=== PATIENT | female | born 1990 | race Two or more races ===

== ENCOUNTER 2016-11-28 18:44 | Emergency (ER) | payer OTHER ==
[~2016-11-28] VITALS: Ht 144.8 cm; Wt 59.5 kg
[2016-11-28 19:13] VITALS: Ht 144.8 cm; Wt 59.5 kg
[2016-11-28 21:29] LABS: ADD UMIC YES; UR BILIRUBIN (Dip) NEGATIVE (NEGATIVE); UR BLOOD (Dip) TRACE (NEGATIVE); UR CLARITY CLEAR (CLEAR); UR COLOR LT. YELLOW (YELLOW); UR GLUCOSE (Dip) NEGATIVE (NEGATIVE); UR KETONES (Dip) NEGATIVE (NEGATIVE); UR LEUKOCYTE ESTERASE (Dip) NEGATIVE (NEGATIVE); UR NITRITE (Dip) NEGATIVE (NEGATIVE); UR TOTAL PROTEIN (Dip) NEGATIVE (NEGATIVE); UR UROBILINOGEN (Dip) 0.2 E.U./dL (0.1-1.0)
--- NOTE | 2016-11-28 22:02 | RADRPT ---
PROCEDURE: US OB. CLINICAL INDICATION: Vaginal spotting TECHNIQUE: Transabdominal and transvaginal views of the pelvis were obtained. COMPARISON: No prior studies are available for comparison. FINDINGS: There is a single intrauterine gestation with a CRL measuring 1.9 cm and the gestational sac measuri ng 3.4 cm, corresponding to a gestational age of 8 weeks and 4 days. The heart rate is noted at 171 bpm. There is a hypoechoic fluid collection adjacent to the gestational sac, measuring 0.8 cm, consisten t with subchorionic hemorrhage. The right ovary measures 4.3 x 2.4 x 2.7 cm. The left ovary measures 3.4 x 1.6 x 2.1 cm. No ovarian or adnexal mass lesion is seen. There is no free fluid. RPTAT: AA IMPRESSION: Single live intrauterine with an estimated gestational age of 8 weeks and 4 days, based on ultrasound measurements. Tiny area of subchorionic hemorrhage. Close follow-up is recommended. .Bret Fleming MD, MD Date Time Electronically viewed and signed by .Bret Fleming MD, on 11/28/2016 22:02 .S/
[2016-11-28 22:11] LABS: UR BACTERIA FEW; UR SQUAMOUS EPITHELIAL CELL MANY; URINE RBCS 0-2 /HPF (0)
[2016-11-28 23:16] LABS: ADD SCAN DIFF NO
[2016-11-28 23:18] LABS: BASOPHIL # 0.1 10^3/ul (0.0-0.1); BASOPHILS % 0.5 % (0.0-2.0); EOSINOPHILS # 0.5 10^3/ul (0.0-0.5); EOSINOPHILS % 4.1 % (0.0-7.0); HEMATOCRIT 37.7 % (37.0-47.0); HEMOGLOBIN 12.5 g/dl (12.0-16.0); LYMPHOCYTES # 2.6 10^3/ul (0.8-2.9); LYMPHOCYTES % 20.1 % (15.0-51.0); MEAN CORPUSCULAR HGB CONC 33.2 g/dl (32.0-37.0); MEAN CORPUSCULAR VOLUME 87.5 fl (82.0-101.0); MONOCYTE # 0.7 10^3/ul (0.3-0.9); MONOCYTES % 5.7 % (0.0-11.0); NEUTROPHIL # 8.8 10^3/ul (1.6-7.5); NEUTROPHILS % 69.1 % (39.0-77.0); PLATELET COUNT 310 10^3/UL (140-415); RED BLOOD COUNT 4.31 10^6/ul (4.20-5.40); RED CELL DISTRIBUTION WIDTH 13.2 % (11.5-14.5); WHITE BLOOD COUNT 12.8 10^3/ul (4.8-10.8)
--- NOTE | 2016-11-28 23:26 | ERD ---
ER Documentation Chief Complaint Date/Time DATE: 11/28/16 TIME: 23:18 Chief Complaint VAG BLEED IN AM, 8 WEEKS PREG. HPI This is a 25-year-old female presents to the ER with vaginal spotting that started this morning. Patient was also having mild pelvic pain. Pelvic pain is described as crampy and is non-radiating in nature. Patient denies any urinary frequency or dysuria. She is currently 8 weeks . A0. Patient denies any fever or chills. ROS 12 point review of systems was done, all negative except per HPI. PMhx/Soc Medical and Surgical Hx: pt denies Medical Hx, pt denies Surgical Hx Hx Alcohol Use: No Hx Substance Use: No Hx Tobacco Use: No Smoking Status: Never smoker Physical Exam Vitals Vital Signs Date Time Temp Pulse Resp B/P Pulse Ox O2 Delivery O2 Flow Rate FiO2 11/28/16 19:13 97.4 86 18 111/69 99 Physical Exam GENERAL: The patient is well developed and appropriate for usual state of health , in no apparent distress. HEENT: Atraumatic. CHEST: Clear to auscultation bilaterally. There are no rales, wheezes or rhonchi. HEART: Regular rate and rhythm. No murmurs, clicks, rubs or gallops. ABDOMEN: Soft, nontender and nondistended. Good bowel sounds. No rebound or guarding. No gross peritonitis. No gross organomegaly or masses. No Zamudio sign or McBurney point tenderness. BACK: No midline or flank tenderness. NEURO: Alert and oriented. SKIN: The skin is warm and dry. Result Diagram: 11/28/16 7336 Results 24 hrs Laboratory Tests Test 11/28/16 20:58 11/28/16 23:06 Urine Color LT. YELLOW Urine Clarity CLEAR Urine pH 6.0 Urine Specific [place] 1.015 Urine Ketones NEGATIVE Urine Nitrite NEGATIVE Urine Bilirubin NEGATIVE Urine Urobilinogen 0.2 E.U./dL Urine Leukocyte Esterase NEGATIVE Urine Microscopic RBC 0-2/HPF Urine Microscopic WBC 0-2/HPF Urine Squamous Epithelial Cells MANY Urine Bacteria FEW Urine Hemoglobin TRACE Urine Glucose NEGATIVE% Urine Total Protein NEGATIVE White Blood Count 12.810^3/ul Red Blood Count 4.3110^6/ul Hemoglobin 12.5g/dl Hematocrit 37.7% Mean Corpuscular Volume 87.5fl Mean Corpuscular Hemoglobin 29.0pg Mean Corpuscular Hemoglobin Concent 33.2g/dl Red Cell Distribution Width 13.2% Platelet Count 68434^3/UL Mean Platelet Volume 10.0fl Neutrophils % 69.1% Lymphocytes % 20.1% Monocytes % 5.7% Eosinophils % 4.1% Basophils % 0.5% Nucleated Red Blood Cells % 0.0/100WBC Neutrophils # 8.810^3/ul Lymphocytes # 2.610^3/ul Monocytes # 0.710^3/ul Eosinophils # 0.510^3/ul Basophils # 0.110^3/ul Nucleated Red Blood Cells # 0.010^3/ul Procedures/MDM Differential diagnosis: Threatened , missed , incomplete , ectopic , molar , UTI, pyelonephritis. At this time patient's ultrasound is normal. Suspicion for ectopic is low. Patient does have a small subchorionic hemorrhage, which may be the cause of her bleeding. There is no evidence of urinary tract infection. Patient's vital signs are stable she is afebrile and well-appearing. 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 My medical decision making was shared with the patient she understands and agrees with plan. Departure Diagnosis: Primary Impression: Threatened Condition: Stable THERON OMER Nov 28, 2016 23:26
[2016-11-29 00:19] VITALS: BP 107/59; PULSE 71; RESP 16; TEMP 97.9
== END 2016-11-29 00:26 | disposition home or self-care (01) ==
LOC: FTE 18:44
DX: O20.0 Threatened abortion (principal); Z3A.08 8 weeks gestation of pregnancy
CPT/HCPCS: 76801; 76817; 81001; 81003; 84702; 85025; 86900; 86901

== ENCOUNTER 2017-05-15 13:15 | Outpatient (CLI) | payer OTHER ==
[~2017-05-15] VITALS: Ht 144.8 cm; Wt 64.9 kg
[2017-05-15 13:31] VITALS: Ht 144.8 cm; Wt 64.9 kg
[2017-05-15 13:32] VITALS: BP 102/58; PULSE 108; RESP 20
--- NOTE | 2017-05-15 14:12 | RADRPT ---
PROCEDURE: OB ultrasound for biophysical profile CLINICAL INDICATION: Gestational diabetes TECHNIQUE: Multiple sonographic images of the pelvis were obtained. Transabdominal views of the g ravid uterus are available for review. The images were reviewed on a PACS workstation. COMPARISON: None FINDINGS: breathing movement = 2/2 tone = 2/2 motion = 2/2 BELEM = 2/2 BELEM = 8.5 cm Single live intrauterine with cardiac activity of 141 bpm. position is cephal ic. The placenta is anterior. IMPRESSION: 1. Single live intrauterine gestation. 2. Biophysical profile = 8/8. 3. BELEM = 8.5 cm. RPTAT: HH .Kristyn Bennett MD, MD Date Time Electronically viewed and signed by .Kristyn Bennett MD, on 05/15/2017 14:12 .G/
--- NOTE | 2017-05-15 14:14 | RADRPT ---
PROCEDURE: US OB. CLINICAL INDICATION: Gestational diabetes TECHNIQUE: Multiple sonographic images of the pelvis were obtained. Transabdominal imaging only w as performed. The images were reviewed on a PACS workstation. COMPARISON: Early OB ultrasound dated 11/28/2016 FINDINGS: There is a single live intrauterine gestation. Cardiac activity is present with 141 beats per minut e. position is cephalic. Measurements were made in order to determine age. The results are as follows: BPD = 7.54 cm HC = 28.09 cm AC = 29.09 cm FL = 6.78 cm. Estimated gestational age of approximately 32 weeks 2 days. The estimated date of delivery is 07/08/2017. The EFW = 2114 g, 78.2 %ile. The placenta is anterior. There is no evidence for an abruption or placenta previa. There are no adnexal masses. IMPRESSION: 1. Single live intrauterine gestation of approximately 32 weeks 2 days, by ultrasound criteria. Th ere has been normal interval growth when compared to the prior examination. 2. The estimated date of delivery is 07/08/2017. 3. The estimated weight is 2114 g, 78.2 %ile. RPTAT: HH .Kristyn Bennett MD, MD Date Time Electronically viewed and signed by .Kristyn Bennett MD, on 05/15/2017 14:14 .G/
--- NOTE | 2017-05-15 14:40 | PN ---
Triage Information Date/Time Reason for visit: Weeks of Gestation 31w 6d /Para Diabetes: gestational Diabetes management: oral agent Objective Heart Rate Comments reactive Contractions: None Results/Medications Imaging Results BPP 03/14, BELEM 8.5cm Disposition: Discharge SHERIN MALCOLM May 15, 2017 14:40
[2017-05-15] MEDS ORDERED: GLYB5TAB3 PO ×2 (15:09)
[2017-05-15] MEDS ORDERED: PREN1TAB79 PO (15:09)
== END 2017-05-15 15:30 | disposition home or self-care (01) ==
LOC: L-D 13:15 → OBT 13:15
PROVIDERS: ATTEND Obstetrics & Gynecology
DX: O24.415 Gestational diabetes mellitus in pregnancy, controlled by oral hypoglycemic drugs (principal); Z3A.31 31 weeks gestation of pregnancy
CPT/HCPCS: 76815; 76818; G0463

== ENCOUNTER 2017-05-18 16:08 | Outpatient (CLI) | payer OTHER ==
[~2017-05-18] VITALS: Ht 144.8 cm; Wt 65.6 kg
[~2017-05-18 16:08] MED LIST: GLYB5TAB3 PO; PREN1TAB79 PO
[2017-05-18 16:37] VITALS: Ht 144.8 cm; Wt 65.6 kg
[2017-05-18 19:50] LABS: ADD UMIC YES; UR ASCORBIC ACID NEGATIVE (NEGATIVE); UR BACTERIA FEW /HPF (NONE SEEN); UR BILIRUBIN (Dip) NEGATIVE (NEGATIVE); UR BLOOD (Dip) NEGATIVE (NEGATIVE); UR CLARITY SLIGHTLY CLOUDY (CLEAR); UR COLOR YELLOW (YELLOW); UR GLUCOSE (Dip) 1+ mg/dL (NEGATIVE); UR KETONES (Dip) NEGATIVE (NEGATIVE); UR LEUKOCYTE ESTERASE (Dip) 2+ Leu/ul (NEGATIVE); UR NITRITE (Dip) NEGATIVE (NEGATIVE); UR RBC 2 /HPF (0-5); UR SQUAMOUS EPITHELIAL CELL FEW /HPF (FEW); UR TOTAL PROTEIN (Dip) NEGATIVE (NEGATIVE); UR UROBILINOGEN (Dip) NEGATIVE (NEGATIVE)
[2017-05-18] MEDS: TERBUTALINE 1 MG/ML INJ SC PRN ×2 (20:26→21:42)
[2017-05-18] MEDS ORDERED: FERR256T PO (20:34)
--- NOTE | 2017-05-18 20:45 | RADRPT ---
PROCEDURE: US biophysical profile. CLINICAL INDICATION: Decreased motion. The patient in labor. TECHNIQUE: Multiple sonographic images of the uterus were obtained. Transvaginal sonograp hy of the cervix was also performed. The images were reviewed on a PACS workstation. COMPARISON: No prior studies are available for comparison. FINDINGS: There is a single live intrauterine gestation. heart rate is 144 beats per minute. The position is cephalic. The placenta is anterior grade 1 with no abruption or previa. The BELEM is 17.2 cm. (Normal = 5-20 cm.) Cervical length is 3.4 cm. The cervix is closed. Breathing Movement: 2 Gross Body Movement: 2 Tone: 2 Qualitative Amniotic Fluid Volume: 2 TOTAL: 8 IMPRESSION: 1. The biophysical score is 8/8. 2. Close cervix with a length of 3.4 cm. RPTAT: QQ .Chad Reynolds MD, MD Date Time Electronically viewed and signed by .Chad Reynolds MD, on 05/18/2017 20:45 .R/
--- NOTE | 2017-05-18 22:25 | TRIAGE ---
OB Triage Datetime Report Generated by CPN: 05/18/2017 22:25 Datetime: 05/18/2017 22:23 Stage of : OB Triage Datetime: 05/18/2017 22:00 Labor Evaluation Frequency: 3-6 Monitor Mode: External Duration (sec)2399: 50-70 Pattern: Normal: <= 5 Contractions in 10 Minutes Contraction Comments: OCCASIONAL IRREGULAR PATTERN. PT ISNT FEELING CRAMPING OR UC'S Heart Rate FHR Baseline Rate: 145 Monitor Mode: External US FHR Baseline Changes: No Baseline Change Variability: Moderate 6-25 bpm Datetime: 05/18/2017 21:41 Contraction Comments: pt. denies feeling uc's or cramping Datetime: 05/18/2017 21:00 Labor Evaluation Frequency: 0 Duration (sec)2399: 0 Pattern: Normal: <= 5 Contractions in 10 Minutes Heart Rate FHR Baseline Rate: 145 Monitor Mode: External US FHR Baseline Changes: No Baseline Change Variability: Moderate 6-25 bpm Accelerations: 15X15 Decelerations: None Datetime: 05/18/2017 20:56 Pain Assessment Pain Scale: 2 Pain Presence: Intermittent Pain Type: Cramping Pain Location: Back Pain Assessment Comments: pt. states pain has decreased and she is feeling less cramping Datetime: 05/18/2017 20:27 Monitor Mode: Palpation Resting Tone [place]: Relaxed Datetime: 05/18/2017 20:00 Labor Evaluation Frequency: 4-5 Monitor Mode: External Duration (sec)2399: 50-70 Pattern: Normal: <= 5 Contractions in 10 Minutes Heart Rate FHR Baseline Rate: 145 Monitor Mode: External US FHR Baseline Changes: No Baseline Change Variability: Minimal - Undetectable to <=5 bpm Datetime: 05/18/2017 19:30 Stage of : OB Triage Assessment Type: Triage Maternal Assessment Level of Consciousness: Fully Conscious Headache: Denies Blurred Vision: No Respiratory Effort: Unlabored; Regular Rhythm; Equal Expansion Nausea/Vomiting: Denies RUQ Epigastric Pain: Denies Facial Edema: None Fall Risk Assessment History of Falling: (0) No Secondary Diagnosis: (0) No Ambulatory Aid: (0) Bedrest/Nurse Assist IV Therapy: (0) No Gait: (0) Normal/Bedrest/Immobile Mental Status: (0) Oriented to Own Ability Fall Score: 0 Fall Risk Score Definition: No Risk: No action required Datetime: 05/18/2017 18:23 Labor Evaluation Frequency: 4-6 Monitor Mode: External Duration (sec)2399: 50-80 Quality: Mild Pattern: Normal: <= 5 Contractions in 10 Minutes Resting Tone [place]: Relaxed Heart Rate FHR Baseline Rate: 145 Monitor Mode: External US FHR Baseline Changes: No Baseline Change Variability: Moderate 6-25 bpm Accelerations: 15X15 Decelerations: None Category: Category I Pain Presence: None/Denies Datetime: 05/18/2017 17:11 Labor Evaluation Frequency: 4-6 Monitor Mode: External Duration (sec)2399: 50-80 Quality: Mild Pattern: Normal: <= 5 Contractions in 10 Minutes Resting Tone [place]: Relaxed Heart Rate FHR Baseline Rate: 150 Monitor Mode: External US FHR Baseline Changes: No Baseline Change Variability: Moderate 6-25 bpm Accelerations: 15X15 Decelerations: None Category: Category I Pain Presence: None/Denies Datetime: 05/18/2017 15:57 Time of Arrival: 05/18/2017 15:57 EGA: 32.2 Arrived By: Ambulatory Arrived From: Office Chief Complaint: UC'S, Movement: Present Contractions: Irregular Rupture of Membranes: Denies Vaginal Bleeding: None Vaginal Discharge: Denies Recent Sexual Intercouse: Denies Abdominal Trauma: Not Applicable Patient Complaints: Contractions; Cramping Time Provider Notified: 05/18/2017 20:00 Provider Notified: BENITO Initial Plan: PO HYDRATION AND CONT EFM Datetime: 05/18/2017 14:55 Stage of : OB Triage Assessment Type: Triage Maternal Assessment Level of Consciousness: Fully Conscious DTR's/Clonus: DTRs 2+; No Clonus Headache: Denies Blurred Vision: No Respiratory Effort: Unlabored; Regular Rhythm; Equal Expansion Breath Sounds, Left: Clear and Equal Breath Sounds, Right: Clear and Equal Nausea/Vomiting: Denies RUQ Epigastric Pain: Denies Facial Edema: None Temperature Route: Axillary Fall Risk Assessment History of Falling: (0) No Secondary Diagnosis: (0) No Ambulatory Aid: (0) Bedrest/Nurse Assist IV Therapy: (0) No Gait: (0) Normal/Bedrest/Immobile Mental Status: (0) Oriented to Own Ability Fall Score: 0 Fall Risk Score Definition: No Risk: No action required Datetime: 05/15/2017 17:06 Time of Arrival: 05/15/2017 13:08 EGA: 31.6 Arrived By: Ambulatory Arrived From: Home Chief Complaint: NST AND BPP FOR A2DM ON [place] Movement: Present Contractions: Denies/Absent Rupture of Membranes: Denies Vaginal Bleeding: None Vaginal Discharge: Denies Recent Sexual Intercouse: Denies Abdominal Trauma: Not Applicable Patient Complaints: None Time Provider Notified: 05/15/2017 14:00 Provider Notified: DR. MALCOLM Initial Plan: NST/BPP Datetime: 05/15/2017 14:41 Labor Evaluation Frequency: OCCASIONAL Monitor Mode: External Duration (sec)2399: 50-90 Quality: Moderate Pattern: Normal: <= 5 Contractions in 10 Minutes Resting Tone [place]: Relaxed Heart Rate FHR Baseline Rate: 140 Monitor Mode: External US Variability: Moderate 6-25 bpm Accelerations: 15X15 Decelerations: None Category: Category I Datetime: 05/15/2017 13:49 Labor Evaluation Frequency: IRREG Monitor Mode: External Duration (sec)2399: 40-60 Quality: Mild Pattern: Normal: <= 5 Contractions in 10 Minutes Resting Tone [place]: Relaxed Heart Rate FHR Baseline Rate: 135 Monitor Mode: External US Variability: Moderate 6-25 bpm Accelerations: 15X15 Decelerations: None Category: Category I Datetime: 05/15/2017 13:45 Assessment Type: Triage Maternal Assessment Level of Consciousness: Fully Conscious DTR's/Clonus: DTRs 2+; No Clonus Headache: Denies Blurred Vision: No Respiratory Effort: Unlabored; Regular Rhythm; Equal Expansion Breath Sounds, Left: Clear and Equal Breath Sounds, Right: Clear and Equal Nausea/Vomiting: Denies RUQ Epigastric Pain: Denies Lower Extremities Edema: None Degree: None Upper Extremities Edema: None Degree: None Facial Edema: None Fall Risk Assessment History of Falling: (0) No Secondary Diagnosis: (0) No Ambulatory Aid: (0) Bedrest/Nurse Assist IV Therapy: (0) No Gait: (0) Normal/Bedrest/Immobile Mental Status: (0) Oriented to Own Ability Fall Score: 0 Fall Risk Score Definition: No Risk: No action required Datetime: 05/15/2017 13:30 Stage of : OB Triage Assessment Type: Triage Maternal Assessment Level of Consciousness: Fully Conscious DTR's/Clonus: DTRs 2+; No Clonus Headache: Denies Blurred Vision: No Respiratory Effort: Unlabored; Regular Rhythm; Equal Expansion Breath Sounds, Left: Clear and Equal Breath Sounds, Right: Clear and Equal Nausea/Vomiting: Denies RUQ Epigastric Pain: Denies Lower Extremities Edema: None Degree: None Upper Extremities Edema: None Degree: None Facial Edema: None Temperature Route: Axillary Fall Risk Assessment History of Falling: (0) No Secondary Diagnosis: (0) No Ambulatory Aid: (0) Bedrest/Nurse Assist IV Therapy: (0) No Gait: (0) Normal/Bedrest/Immobile Mental Status: (0) Oriented to Own Ability Fall Score: 0 Fall Risk Score Definition: No Risk: No action required Pain Assessment Pain Scale: 0 Pain Presence: None/Denies Pain Type: N/A
--- NOTE | 2017-05-18 23:34 | PN ---
Triage Information Date/Time 05/18/17/ 9449 Reason for visit: Uterine contractions Weeks of Gestation 32w2d /Para primigravida Diabetes: gestational Additional information on glyburide 5mg Objective Heart Rate: 140's Contractions: < 5 Minutes Apart Results/Medications Results 24 hrs Laboratory Tests Test 05/18/17 19:00 Urine Color YELLOW Urine Clarity SLIGHTLY CLOUDY A Urine pH 7.0 Urine Specific [place] 1.010 Urine Ketones NEGATIVE Urine Nitrite NEGATIVE Urine Bilirubin NEGATIVE Urine Urobilinogen NEGATIVE Urine Leukocyte Esterase 2+ H Urine Microscopic RBC 2 Urine Microscopic WBC 4 Urine Squamous Epithelial Cells FEW Urine Bacteria FEW A Urine Hemoglobin NEGATIVE Urine Glucose 1+ H Urine Total Protein NEGATIVE Medications p.o hydration x1 terbutaline Imaging Results BPP 03/14 BELEM 17.2 CVL 3.4 Disposition: Discharge Assessment/Plan IUP 32W2D R/O PTL resolved with po hydration and x1 terbutaline Plan discharge home with increase fluid intake RTH prn JOAN OLIVER MD May 18, 2017 23:34
== END 2017-05-18 22:30 | disposition home or self-care (01) ==
LOC: OBT 16:08 → L-D 16:10 → OBT 22:30
PROVIDERS: ATTEND Obstetrics & Gynecology
DX: O62.9 Abnormality of forces of labor, unspecified (principal); Z3A.32 32 weeks gestation of pregnancy
CPT/HCPCS: 76817; 76818; 81001; 96372; G0463; J3105

== ENCOUNTER 2017-05-24 00:05 | Inpatient (IN) | payer OTHER ==
[~2017-05-24 00:05] MED LIST changes: +FERR256T PO
[2017-05-24] MEDS ORDERED: LACTATED RINGER'S 1,000 ML IV SCH (01:06)
[2017-05-24] MEDS ORDERED: DEXTROSE 50% 50 ML SYRINGE IV PRN ×2 (01:15)
[2017-05-24] MEDS ORDERED: GLUCAGON 1 MG INJ IM PRN (01:15)
[2017-05-24] MEDS ORDERED: GLUCOSE GEL 15 GRAM TUBE BUCCAL PRN (01:15)
[2017-05-24] MEDS ORDERED: GLUCOSE GEL 15 GRAM TUBE PO PRN ×2 (01:15)
[2017-05-24] MEDS ORDERED: AL HYDROX/MG HYDROX/SIMETH 30 ML CUP PO PRN (01:30)
[2017-05-24] MEDS ORDERED: ACETAMINOPHEN 325 MG TAB PO PRN (01:30)
[2017-05-24] MEDS ORDERED: DIPHENHYDRAMINE 25 MG CAP PO PRN (01:30)
[2017-05-24] MEDS: ACCU-CHEK XX SCH ×4 (08:00→19:47)
[2017-05-24] MEDS ORDERED: glyBURIDE 5 MG TAB PO SCH (08:00)
--- NOTE | 2017-05-24 08:50 | RADRPT ---
PROCEDURE: OB ultrasound for biophysical profile CLINICAL INDICATION: Uncontrolled diabetes. Biophysical profile. . TECHNIQUE: Multiple sonographic images of the pelvis were obtained. Transabdominal view of the gr avid uterus are available for review. The images were reviewed on a PACS workstation. COMPARISON: None FINDINGS: breathing movement = 2/2 tone = 2/2 motion = 2/2 BELEM = 2/2 Single intrauterine gestation is identified in cephalic position. heart rate is 141 bpm. Plac enta is anterior without evidence for abruption or previa. BELEM measures 11.9 cm, within normal limi ts. IMPRESSION: 1. Single live intrauterine gestation. 2. Biophysical profile = 8/8. 3. BELEM = 11.9 cm. RPTAT: AAOO .Bentley Smith MD, Date Time Electronically viewed and signed by .Bentley Smith MD, on 05/24/2017 08:50 .R/
[2017-05-24] MEDS: FERROUS SULFATE (EC) 325 MG TAB PO SCH ×2 (08:53→21:16)
[2017-05-24] MEDS: PRENATAL VITAMIN PO SCH (08:54)
[2017-05-24] MEDS: DOCUSATE SODIUM 100 MG CAP PO SCH (08:54)
[2017-05-24 13:25] LABS: ALBUMIN 3.3 g/dl (3.3-4.9); BILIRUBIN,INDIRECT 0.1 mg/dl (0-1.1); BILIRUBIN,TOTAL 0.1 mg/dl (0.2-1.3); TOTAL PROTEIN 7.1 g/dl (6.1-8.1)
--- NOTE | 2017-05-24 14:02 | PREOPHP ---
DATE OF ADMISSION: 05/24/2017 HISTORY OF PRESENT ILLNESS: This is a 25-year-old female, 1, para 0 with an EDC of 07/06/20 17 by ultrasound 07/11/2016 by last menstrual period on 10/04/2016. This patient had been followed by me since early . She had no complications and she developed gestational diabetes in the third trimester. The patient was not controlled with her blood sugars until now. She was placed o n glyburide 5 mg in the morning and 2.5 mg in the evening and she was followed closely. Diet was ad vised and she is ____ me today. Yesterday, the blood sugar levels were extremely abnormal. For thi s reason, the patient was admitted to the hospital with blood levels that were up to 200 at dinnerti me for control and education of her diet even though I had spent 12 hours of trying to explain this to her from the beginning. The patient needs a little more education and also maybe adjustment on h er p.o. medication or maybe to be switched to insulin. PAST MEDICAL HISTORY: Unremarkable. ALLERGIES: SHE IS NOT ALLERGIC TO ANY MEDICATION. SOCIAL HISTORY: She does not drink or smoke and no history of drugs. The patient is from [facility]. FAMILY HISTORY: Her mother is diabetic and father with heart disease. PHYSICAL EXAMINATION: VITAL SIGNS: Patient is 4 feet 9 inches. She started with a weight of 130 and right now she is 147 and she is with normal blood pressure is 90/60. HEAD AND NECK: Normal. HEART: Normal sinus rhythm. LUNGS: Clear. ABDOMEN: Soft. Uterus at 33-6/7 and the heart tones are normal with normocephalic presentat ion. The patient looks very small in height for the size of this . EXTREMITIES: Normal. PELVIC: The cervix is closed, long and posterior. No signs of labor even though she is stating lorrie t she is having contractions. DIAGNOSES: The patient has a 33 and 6/7 weeks' with gestational diabetes A2. She is bein g admitted for control of her blood sugar and consultation to perinatology. Dictated By: MELITA SABILLON/SAMMY Conf#: [id number] DID#: [id number]
[2017-05-24] MEDS ORDERED: glyBURIDE 2.5 MG TAB PO SCH (21:00)
[2017-05-25] MEDS ORDERED: glyBURIDE 5 MG TAB PO SCH (08:00)
[2017-05-25] MEDS: ACCU-CHEK XX SCH ×4 (08:30→19:47)
[2017-05-25] MEDS: FERROUS SULFATE (EC) 325 MG TAB PO SCH ×2 (09:32→20:47)
[2017-05-25] MEDS: PRENATAL VITAMIN PO SCH (09:32)
[2017-05-25] MEDS: DOCUSATE SODIUM 100 MG CAP PO SCH (09:32)
--- NOTE | 2017-05-25 11:56 | PN ---
Date/Time of Note Date/Time of Note DATE: 05/25/17 TIME: 11:52 OB Subjective Subjective Subjective Patient has been stable on no medication by mouth. Dr Us has been consulted and she agreed on sending this patient home on no meds. She has been explained by the field interviewer how to eat at home and she will be coming back for NST BPP and she will bring her blood sugar levels for Dr. Alves to evaluate. I will keep her until tomorrow to review her 2 hours sugar after dinner OB Objective HEENT: WNL Heart: Rhythm Normal Lungs: Clear, Equal Abdomen: WNL Extremities: Normal Reflexes: Normal MELITA STEARNS MD May 25, 2017 11:56
[2017-05-25] MEDS: LACTATED RINGER'S 1,000 ML IV SCH ×4 (12:55→20:46)
[2017-05-25] MEDS ORDERED: MAGNESIUM SULFATE 4 GM/100 ML 100 ML IV ONE (15:30)
[2017-05-25] MEDS ORDERED: BETAMET NA PHOS/AC(6 MG/ML) 5ML INJ IM SCH (15:30)
[2017-05-25] MEDS: MAGNESIUM SULFATE 20 GM/500 ML 500 ML IV SCH (16:12)
[2017-05-25] MEDS: AMPICILLIN 2 GM/NS (PMX) 100 ML IV SCH (17:44)
--- NOTE | 2017-05-25 22:19 | RADRPT ---
PROCEDURE: CERVICAL LENGTH ULTRASOUND CLINICAL INDICATION: labor at 33 weeks gestational age. TECHNIQUE: Trans-vaginal imaging of the cervical canal was performed utilizing yan-scale imaging. Sagittal and transverse images were obtained. Trans-abdominal images were also obtained. The xiomara ges were reviewed on a PACS workstation. COMPARISON: None. FINDINGS: There is a single live intrauterine . heart rate is 134 beats per minute. Position is cephalic and placenta is anterior grade II. There is no placenta previa. The cervix is closed with a length of 3.3 cm. IMPRESSION: 1. Cervical length is 3.3 cm. RPTAT: QQ .Chad Reynolds MD, MD Date Time Electronically viewed and signed by .Chad Reynolds MD, on 05/25/2017 22:19 .R/
[2017-05-26] MEDS: AMPICILLIN 2 GM/NS (PMX) 100 ML IV SCH ×3 (00:05→17:14)
[2017-05-26] MEDS: MAGNESIUM SULFATE 20 GM/500 ML 500 ML IV SCH ×2 (01:08→11:22)
[2017-05-26] MEDS: LACTATED RINGER'S 1,000 ML IV SCH (04:42)
[2017-05-26] MEDS: ACCU-CHEK XX SCH ×3 (08:36→16:30)
[2017-05-26] MEDS: DOCUSATE SODIUM 100 MG CAP PO SCH (09:04)
[2017-05-26] MEDS: PRENATAL VITAMIN PO SCH (09:04)
[2017-05-26] MEDS: FERROUS SULFATE (EC) 325 MG TAB PO SCH (09:04)
--- NOTE | 2017-05-26 13:14 | PD.PPDC ---
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
--- NOTE | 2017-05-26 13:58 | PERINOTE ---
Date/Time of Note Date/Time of Note DATE: 05/26/17 TIME: 13:51 Assessment/Recommendations Other Assessments IUP 33W3D Gestational diabetes, now well controlled on no medication UCs with normal cervical length; lower risk for delivery Recommendations: I discussed with the patient appropriate dietary choices and she appears to understand I would D/C the magnesium at this time. If the patient does not begin to contract again, I would D/C home without the second dose of betamethasone. I would have thsi patient seen in the perinatology clinic in 5-10 days to review her diabetes care and for an ultrasound for growth (if not done in the past month). OB Subjective Free Text/Dictaton Patient admitted with uncontrolled diabetes. While in the hospital she developed contractions and was treated with magnesium sulfate and betamethasone. Transvaginal cervical length was 3.3cm. HD# 3 IUP @ 33W3D Complaints/Overnight events Patient's blood glucose has been normal on no medication, except for mild elevations due to use of steroids. No contractions at present. Current Medications Current Medications Prenat Multivit/ [place]/Iron/Folic Ac () 1 tab DAILY PO Last administered on 05/26/17 09:04; Admin Dose 1 TAB; Start 05/24/17 at 09:00 Ferrous Sulfate (Ferrous Sulfate (Ec)) 325 mg BID PO Last administered on 05/26 09:04; Admin Dose 325 MG; Start 05/24/17 at 09:00 Docusate Sodium (Colace) 100 mg DAILY PO Last administered on 05/26/17 09:04 ; Admin Dose 100 MG; Start 05/24/17 at 09:00 Acetaminophen (Tylenol Tab) 650 mg Q4H PRN PO PAIN AND OR ELEVATED TEMP Last administered on 05/26/17 11:23; Admin Dose 650 MG; Start 05/24/17 at 01:30 Al Hydrox/Mg Hydrox/Simethicone (Mag-Al Plus) 30 ml Q6H PRN PO GASTROINTESTINAL UPSET; Start 05/24/17 at 01:30 Diagnostic Test (Pha) (Accu-Chek) 1 ea FBSPP XX Last administered on 11:00; Admin Dose 1 EA; Start 05/24/17 at 07:30 Miscellaneous Information 1 ea NOTE XX ; Start 05/24/17 at 01:15 Glucose (Glutose) 15 gm Q15M PRN PO DECREASED GLUCOSE; Start 05/24/17 at 01:15 Glucose (Glutose) 22.5 gm Q15M PRN PO DECREASED GLUCOSE; Start 05/24/17 at 01: 15 Dextrose (D50w Syringe) 25 ml Q15M PRN IV DECREASED GLUCOSE; Start 05/24/17 at 01:15 Dextrose (D50w Syringe) 50 ml Q15M PRN IV DECREASED GLUCOSE; Start 05/24/17 at 01:15 Glucagon (Glucagen) 1 mg Q15M PRN IM DECREASED GLUCOSE; Start 05/24/17 at 01: 15 Glucose 15 gm 15 gm Q15M PRN BUCCAL DECREASED GLUCOSE; Start 05/24/17 at 01:15 Lactated Ringer's 1,000 ml @ 75 mls/hr [id number] IV Last administered on 15:46; Admin Dose 75 MLS/HR; Start 05/25/17 at 15:22 Magnesium Sulfate (Magnesium Sulfate 20 Gm/500 ml) 500 ml @ 50 mls/hr Q10H IV Last administered on 05/26/17 11:22; Admin Dose 50 MLS/HR; Start 05/25/17 at 15:30 Betamethasone Acet/Betameth SodPhos 12 mg 12 mg Q24H IM Last administered on 15:53; Admin Dose 12 MG; Start 05/25/17 at 15:30; Stop 05/26/17 at 15 :31 Ampicillin (Ampicillin 2 Gm/ NS (Pmx)) 100 ml @ 100 mls/hr Q6 IV Last administered on 05/26/17 05:51; Admin Dose 100 MLS/HR; Start 05/25/17 at 18: 00 Past Medical History Medical History: no pertinent history Surgical History: no surgical history 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 Para: 0 : 1 LMP (Females 10-50): Family History Significant Family History: diabetes OB Admission Exam Physical Exam Abdomen: WNL Last 72 hourBlood Glucose Bedside Glucose - 72 Hours Test 05/24/17 00:55 05/24/17 07:50 05/24/17 11:02 05/24/17 12:30 Bedside Glucose 127mg/dL (70-220) 85mg/dL (70-220) 90mg/dL (70-220) 55mg/dL (70-220) L Test 05/24/17 12:50 05/24/17 13:06 05/24/17 14:04 05/24/17 14:59 Bedside Glucose 65mg/dL (70-220) L 67mg/dL (70-220) L 109mg/dL (70-220) 107mg/dL (70-220) Test 05/24/17 19:42 05/25/17 07:57 05/25/17 11:23 05/25/17 15:05 Bedside Glucose 93mg/dL (70-220) 82mg/dL (70-220) 108mg/dL (70-220) 105mg/dL (70-220) Test 05/25/17 19:47 05/26/17 08:34 05/26/17 11:05 Bedside Glucose 101mg/dL (70-220) 111mg/dL (70-220) 121mg/dL (70-220) Last 72 hours Lab Results Liver Function Test 05/24/17 12:11 Alanine Aminotransferase (ALT/SGPT) 26 Albumin 3.3 Alkaline Phosphatase 174 H Aspartate Amino Transf (AST/SGOT) 19 Direct Bilirubin 0.00 Total Protein 7.1 Magnesium Level Test 05/26/17 01:04 05/26/17 06:02 05/26/17 12:03 Magnesium Level 5.1 *H 5.5 *H 5.5 *H Copies To: CC: MELITA STEARNS MD, MARIE H MD May 26, 2017 13:58
--- NOTE | 2017-05-27 04:22 | DS ---
DATE OF ADMISSION: 05/24/2017 DATE OF DISCHARGE: 05/26/2017 ADMITTING DIAGNOSES: A 33 and 6/7 weeks' with gestational diabetes A2, uncontrolled. HISTORY ON DISCHARGE: Undelivered at 34 and 1. This is a 25-year-old female, 1, para 0 pat ient with an EDC of 07/06/2017. This patient had been seeing me since early . She had an early ultrasound with good dating and she had been diagnosed with gestational diabetes that was unma nageable and for this reason, I was making her postprandial blood sugars of 200. The patient had se en me a few times for extensive explanation of diabetic diet and seems to understand. She is admitt ed in the hospital and Dr. Us, Dr. Rutledge were in consultation and she did very well with a 2000 c alorie diet and she had to be removed from the Glyburide since she was hypoglycemic at times and she was controlled absolutely with just diet alone. The patient was given magnesium sulfate due to nimco e contractions which subsided after. She also was given betamethasone 1 dose due to contractions be fore the contractions subsided and in spite of that her blood sugars were still controlled after 2 h ours postprandial for which reason with a cervical length of 3.6 cm and with no changes in the cervi x, the patient has been sent home with instructions with the same diet and to continue with her diet , to come back to see Dr. Us, Dr. Rutledge for followup, to come for NSTs and BPP once a week. The patient is stable in good condition to be discharged home and given explanation of everything else s he needs to know about diet and bed rest at home and to see me in the office in a week and see Dr. Violet siddiqui in a week as well. Dictated By: MELITA SABILLON/SAMMY Conf#: [id number] DID#: [id number]
== END 2017-05-26 17:30 | disposition home or self-care (01) | DRG 781 ==
LOC: OBG 00:05
PROVIDERS: ADMIT Obstetrics & Gynecology; ATTEND Obstetrics & Gynecology
DX: O24.415 Gestational diabetes mellitus in pregnancy, controlled by oral hypoglycemic drugs (principal); O60.03 Preterm labor without delivery, third trimester; Z83.3 Family history of diabetes mellitus; Z3A.33 33 weeks gestation of pregnancy
CPT/HCPCS: 76817; 76818; 80076; 82962; 83735; J0290; J0702; J3475; J7120

== ENCOUNTER 2017-05-31 14:30 | Inpatient (IN) | payer OTHER ==
[~2017-05-31] VITALS: Ht 144.8 cm; Wt 67.5 kg
[~2017-05-31 14:30] MED LIST changes: -GLYB5TAB3 PO
[2017-05-31 15:36] VITALS: BP 110/75; PULSE 88; RESP 18; Ht 144.8 cm; Wt 67.5 kg
[2017-05-31] MEDS ORDERED: LACTATED RINGER'S 1,000 ML IV SCH ×2 (16:30→18:08)
[2017-05-31] MEDS ORDERED: BETAMET NA PHOS/AC(6 MG/ML) 5ML INJ IM ONE (16:30)
[2017-05-31] MEDS ORDERED: TERBUTALINE 1 MG/ML INJ SC ONE (16:30)
--- NOTE | 2017-05-31 17:13 | RADRPT ---
PROCEDURE: US OB biophysical profile. CLINICAL INDICATION: decreased movements, contractions TECHNIQUE: Multiple sonographic images of the pelvis were obtained. The images were reviewed on a PACS workstation. COMPARISON: US PELVIS 05/24/2017 FINDINGS: There is a single viable intrauterine gestation. Cardiac activity is present with 140 beats per min [place]. There is a vertex presentation. The placenta is anterior. There is no evidence of placental abruption. There is a moderately increased amount of amniotic fluid with an BELEM = 24.3 cm. Biophysical profile: movement 2/2 tone 2/2. breathing 2/2 BELEM 2/2 Total 03/14 RPTAT: AA . IMPRESSION: Normal biophysical profile. Polyhydramnios. . .Bret Fleming MD, Date Time Electronically viewed and signed by .Bret Fleming MD, MD on 05/31/2017 17:13 .S/
[2017-05-31] MEDS ORDERED: MAGNESIUM SULFATE 20 GM/500 ML 500 ML IV SCH (17:14)
--- NOTE | 2017-05-31 17:16 | TRIAGE ---
OB Triage Datetime Report Generated by CPN: 05/31/2017 17:15 Datetime: 05/31/2017 16:39 Vaginal Exam Dilatation (cms): 2.5 Effacement (%): 50 Station: -2 Exam By: adriano Vaginal Bleeding: Scant Cervix, Consistency: Moderate Cervix, Position: Posterior Datetime: 05/31/2017 15:32 Assessment Type: Triage Maternal Assessment Level of Consciousness: Fully Conscious DTR's/Clonus: DTRs 2+; No Clonus Headache: Denies Blurred Vision: No Respiratory Effort: Unlabored; Regular Rhythm; Equal Expansion Breath Sounds, Left: Clear and Equal Breath Sounds, Right: Clear and Equal Nausea/Vomiting: Denies RUQ Epigastric Pain: Denies Lower Extremities Edema: None Degree: None Upper Extremities Edema: None Degree: None Facial Edema: None Fall Risk Assessment History of Falling: (0) No Secondary Diagnosis: (0) No Ambulatory Aid: (0) Bedrest/Nurse Assist IV Therapy: (0) No Gait: (0) Normal/Bedrest/Immobile Mental Status: (0) Oriented to Own Ability Fall Score: 0 Fall Risk Score Definition: No Risk: No action required Datetime: 05/31/2017 15:28 Monitor Mode: External Monitor Mode: External US Datetime: 05/31/2017 15:27 Time of Arrival: 05/31/2017 14:18 EGA: 34.1 Arrived By: Ambulatory Arrived From: Home Chief Complaint: PT HERE FOR C/O LOWER BACK PAIN, SPOTTING, AND DFM Movement: Decreased Contractions: Denies/Absent Rupture of Membranes: Unsure Vaginal Bleeding: None Vaginal Discharge: Present Recent Sexual Intercouse: Denies Abdominal Trauma: Not Applicable Patient Complaints: Back Pain Time Provider Notified: 05/31/2017 16:27 Provider Notified: ABUSLEME Initial Plan: SVE, IV HYDRATION/ TERB/ BETA/ BPP Datetime: 05/26/2017 17:20 Stage of : Antepartum Datetime: 05/26/2017 16:00 Stage of : Antepartum Labor Evaluation Frequency: x3 Monitor Mode: External Duration (sec)2399: 80 Quality: Mild Resting Tone [place]: Relaxed Heart Rate FHR Baseline Rate: 140 Monitor Mode: External US FHR Baseline Changes: No Baseline Change Variability: Moderate 6-25 bpm Accelerations: 15X15 Decelerations: None Pain Assessment Pain Scale: 0 Pain Presence: None/Denies Pain Type: N/A Datetime: 05/26/2017 15:02 Labor Evaluation Frequency: x3 Monitor Mode: External Duration (sec)2399: 80 Quality: Mild Resting Tone [place]: Relaxed Heart Rate FHR Baseline Rate: 140 Monitor Mode: External US FHR Baseline Changes: No Baseline Change Variability: Moderate 6-25 bpm Accelerations: 15X15 Decelerations: None Pain Assessment Pain Scale: 0 Pain Presence: None/Denies Pain Type: N/A Datetime: 05/26/2017 14:00 Labor Evaluation Frequency: x1 Monitor Mode: External Duration (sec)2399: 80 Quality: Mild Pattern: Normal: <= 5 Contractions in 10 Minutes Resting Tone [place]: Relaxed Heart Rate FHR Baseline Rate: 140 Monitor Mode: External US FHR Baseline Changes: No Baseline Change Variability: Moderate 6-25 bpm Accelerations: 15X15 Decelerations: None Category: Category I Pain Assessment Pain Scale: 0 Pain Presence: None/Denies Pain Type: N/A Datetime: 05/26/2017 13:00 Stage of : Antepartum Labor Evaluation Frequency: x2 Monitor Mode: External Duration (sec)2399: 70 Quality: Mild Resting Tone [place]: Relaxed Heart Rate FHR Baseline Rate: 130 Monitor Mode: External US Variability: Moderate 6-25 bpm Accelerations: None Decelerations: None Pain Assessment Pain Scale: 2 Pain Presence: Constant Pain Type: Dull; Ache Pain Location: Head Pain Relief Measures: Pain Medication Given Datetime: 05/26/2017 12:00 Stage of : Antepartum Maternal Assessment Level of Consciousness: Fully Conscious DTR's/Clonus: DTRs 1+ Headache: Occipital Breath Sounds, Left: Clear and Equal Breath Sounds, Right: Clear and Equal Nausea/Vomiting: Present RUQ Epigastric Pain: Denies Labor Evaluation Frequency: x2 Monitor Mode: External Duration (sec)2399: 70 Quality: Mild Resting Tone [place]: Relaxed Heart Rate FHR Baseline Rate: 130 Monitor Mode: External US Variability: Moderate 6-25 bpm Accelerations: None Decelerations: None Pain Assessment Pain Scale: 6 Pain Presence: Constant Pain Type: Dull; Ache Pain Location: Head Pain Relief Measures: Comfort Measures Pain Assessment Comments: requested pain medication Datetime: 05/26/2017 11:05 Bedside Blood Glucose: 121 (Annotations: 2 hour post prandial) Datetime: 05/26/2017 11:00 Stage of : Antepartum Labor Evaluation Frequency: x3 Monitor Mode: External Duration (sec)2399: 70 Quality: Mild Resting Tone [place]: Relaxed Heart Rate FHR Baseline Rate: 130 Monitor Mode: External US Variability: Moderate 6-25 bpm Accelerations: None Decelerations: None Pain Assessment Pain Scale: 4 Pain Presence: Constant Pain Type: Dull; Ache Pain Location: Right Arm Pain Relief Measures: Comfort Measures Datetime: 05/26/2017 10:00 Stage of : Antepartum Maternal Assessment Level of Consciousness: Fully Conscious DTR's/Clonus: DTRs 1+ Headache: Denies Breath Sounds, Left: Clear and Equal Breath Sounds, Right: Clear and Equal Nausea/Vomiting: Denies RUQ Epigastric Pain: Denies Labor Evaluation Frequency: x3 Monitor Mode: External Duration (sec)2399: 70 Quality: Mild Resting Tone [place]: Relaxed Heart Rate FHR Baseline Rate: 130 Monitor Mode: External US Variability: Moderate 6-25 bpm Accelerations: None Decelerations: None Pain Assessment Pain Scale: 4 Pain Presence: Constant Pain Type: Dull; Ache Pain Location: Right Arm Pain Relief Measures: Comfort Measures Datetime: 05/26/2017 09:00 Stage of : Antepartum Labor Evaluation Frequency: X2 Monitor Mode: External Duration (sec)2399: 70 Quality: Mild Resting Tone [place]: Relaxed Heart Rate FHR Baseline Rate: 130 Monitor Mode: External US Variability: Moderate 6-25 bpm Accelerations: None Decelerations: None Pain Assessment Pain Scale: 4 Pain Presence: Constant Pain Type: Dull; Ache Pain Location: Right Arm Pain Relief Measures: Comfort Measures Datetime: 05/26/2017 08:36 Stage of : Antepartum Bedside Blood Glucose: 111 (Annotations: FBS) Datetime: 05/26/2017 08:33 Bedside Blood Glucose: 111 (Annotations: Fasting) Datetime: 05/26/2017 08:00 Stage of : Antepartum Labor Evaluation Frequency: X2 Monitor Mode: External Duration (sec)2399: 70 Quality: Mild Resting Tone [place]: Relaxed Heart Rate FHR Baseline Rate: 130 Monitor Mode: External US Variability: Moderate 6-25 bpm Accelerations: None Decelerations: None Pain Assessment Pain Scale: 4 Pain Presence: Constant Pain Type: Dull; Ache Pain Location: Right Arm Pain Relief Measures: Comfort Measures Pain Assessment Comments: Refsed pain medication Datetime: 05/26/2017 07:45 Stage of : Antepartum Assessment Type: Ongoing Assessment Maternal Assessment Level of Consciousness: Fully Conscious DTR's/Clonus: DTRs 2+; No Clonus Headache: Denies Blurred Vision: No Respiratory Effort: Unlabored; Regular Rhythm; Equal Expansion Breath Sounds, Left: Clear and Equal Breath Sounds, Right: Clear and Equal Nausea/Vomiting: Denies RUQ Epigastric Pain: Denies Lower Extremities Edema: None Degree: None Upper Extremities Edema: None Degree: None Facial Edema: None Temperature Route: Oral Fall Risk Assessment History of Falling: (0) No Secondary Diagnosis: (0) No Ambulatory Aid: (0) Bedrest/Nurse Assist IV Therapy: (0) No Gait: (0) Normal/Bedrest/Immobile Mental Status: (0) Oriented to Own Ability Fall Score: 0 Fall Risk Score Definition: No Risk: No action required Pain Assessment Pain Scale: 4 Pain Presence: Constant Pain Type: Ache Pain Location: Right Arm Pain Goal: 4 Pain Relief Measures: Comfort Measures Pain Assessment Comments: Refused pain medication Datetime: 05/26/2017 07:30 Stage of : Antepartum Datetime: 05/26/2017 07:00 Labor Evaluation Frequency: X2 Monitor Mode: External Duration (sec)2399: 70 Quality: Mild Resting Tone [place]: Relaxed Heart Rate FHR Baseline Rate: 130 Monitor Mode: External US Variability: Moderate 6-25 bpm Accelerations: None Decelerations: None Pain Presence: None/Denies Pain Type: N/A Datetime: 05/26/2017 06:00 Labor Evaluation Frequency: X2 Monitor Mode: External Duration (sec)2399: 80 Quality: Mild Resting Tone [place]: Relaxed Heart Rate FHR Baseline Rate: 130 Monitor Mode: External US Variability: Minimal - Undetectable to <=5 bpm Accelerations: None Decelerations: None Category: Category II Datetime: 05/26/2017 05:51 Stage of : Antepartum DTR's/Clonus: DTRs 2+; No Clonus Temperature Route: Oral Contraction Comments: PT STATES SHE FEELS AN ACCASSIONAL CRAMP Comments: PT STATES + FM Pain Presence: None/Denies Membrane Status: Intact Vaginal Bleeding: None Datetime: 05/26/2017 05:00 Labor Evaluation Frequency: X4 Monitor Mode: External Duration (sec)2399: 70-100 Quality: Mild Resting Tone [place]: Relaxed Heart Rate FHR Baseline Rate: 130 Monitor Mode: External US Variability: Moderate 6-25 bpm Accelerations: None Decelerations: None Category: Category I Pain Presence: None/Denies Pain Type: N/A Pain Assessment Comments: PT REMAINS ASLEEP WITH EVEN UNLABORED BREATHING Datetime: 05/26/2017 04:00 DTR's/Clonus: DTRs 2+; No Clonus Breath Sounds, Left: Clear and Equal Breath Sounds, Right: Clear and Equal Labor Evaluation Frequency: X4 Monitor Mode: External Duration (sec)2399: 70-90 Quality: Mild Resting Tone [place]: Relaxed Heart Rate FHR Baseline Rate: 130 Monitor Mode: External US Variability: Moderate 6-25 bpm Accelerations: 15X15 Decelerations: None Category: Category I Pain Presence: None/Denies Pain Type: N/A Datetime: 05/26/2017 02:59 DTR's/Clonus: DTRs 2+; No Clonus Breath Sounds, Left: Clear and Equal Breath Sounds, Right: Clear and Equal Labor Evaluation Frequency: X4 Monitor Mode: External Duration (sec)2399: 80-90 Quality: Mild Resting Tone [place]: Relaxed Heart Rate FHR Baseline Rate: 130 Monitor Mode: External US Variability: Moderate 6-25 bpm Accelerations: None Decelerations: None Category: Category I Pain Presence: None/Denies Pain Type: N/A Pain Assessment Comments: PT SLEEPING WITH EVEN UNLABORED BREATHING Datetime: 05/26/2017 02:00 DTR's/Clonus: DTRs 2+; No Clonus Labor Evaluation Frequency: X2 Monitor Mode: External Duration (sec)2399: 60-100 Quality: Mild Resting Tone [place]: Relaxed Heart Rate FHR Baseline Rate: 130 Monitor Mode: External US Variability: Moderate 6-25 bpm Accelerations: None Decelerations: None Category: Category I Pain Presence: None/Denies Pain Type: N/A Datetime: 05/26/2017 01:08 Stage of : Antepartum Datetime: 05/26/2017 01:00 Labor Evaluation Frequency: X2 Monitor Mode: External Duration (sec)2399: 50-90 Quality: Mild Resting Tone [place]: Relaxed Heart Rate FHR Baseline Rate: 130 Monitor Mode: External US Variability: Moderate 6-25 bpm Comments: TRACING UNREADABLE TO TO LOC DUE TO ACTIVE FETUS Pain Presence: None/Denies Pain Type: N/A Datetime: 05/26/2017 00:00 Labor Evaluation Frequency: X2 Monitor Mode: External Duration (sec)2399: 50-100 Quality: Mild Resting Tone [place]: Relaxed Heart Rate FHR Baseline Rate: 130 Variability: Moderate 6-25 bpm Comments: LOC DUE TO ACTIVE FETUS AND PT SITTING UP. Datetime: 05/25/2017 23:00 Labor Evaluation Frequency: X3 Monitor Mode: External Duration (sec)2399: 90-140 Quality: Mild Resting Tone [place]: Relaxed Heart Rate FHR Baseline Rate: 130 Monitor Mode: External US Variability: Moderate 6-25 bpm Accelerations: 15X15 Decelerations: None Category: Category I Pain Presence: None/Denies Pain Type: N/A Datetime: 05/25/2017 22:00 DTR's/Clonus: DTRs 2+; No Clonus Labor Evaluation Frequency: X2 Monitor Mode: External Duration (sec)2399: 80-110 Quality: Mild Resting Tone [place]: Relaxed Heart Rate FHR Baseline Rate: 135 Monitor Mode: External US Variability: Moderate 6-25 bpm Accelerations: 15X15 Decelerations: None Category: Category I Pain Presence: None/Denies Pain Type: N/A Datetime: 05/25/2017 21:00 Labor Evaluation Frequency: NONE Monitor Mode: External Resting Tone [place]: Relaxed Heart Rate FHR Baseline Rate: 135 Variability: Moderate 6-25 bpm Accelerations: 15X15 Decelerations: None Category: Category I Pain Presence: None/Denies Pain Type: N/A Datetime: 05/25/2017 20:00 Labor Evaluation Frequency: X4 Monitor Mode: External Duration (sec)2399: 80-130 Quality: Mild Resting Tone [place]: Relaxed Heart Rate FHR Baseline Rate: 140 Monitor Mode: External US Variability: Moderate 6-25 bpm Accelerations: 15X15 Decelerations: None Category: Category I Pain Presence: None/Denies Pain Type: N/A Datetime: 05/25/2017 19:47 Stage of : Antepartum Assessment Type: Ongoing Assessment Maternal Assessment Level of Consciousness: Fully Conscious DTR's/Clonus: DTRs 2+; No Clonus Headache: Denies Blurred Vision: No Respiratory Effort: Unlabored; Regular Rhythm; Equal Expansion Breath Sounds, Left: Clear and Equal Breath Sounds, Right: Clear and Equal Nausea/Vomiting: Denies RUQ Epigastric Pain: Denies Lower Extremities Edema: None Degree: None Upper Extremities Edema: None Degree: None Facial Edema: None Temperature Route: Oral Bedside Blood Glucose: 101 Fall Risk Assessment History of Falling: (0) No Secondary Diagnosis: (0) No Ambulatory Aid: (0) Bedrest/Nurse Assist IV Therapy: (0) No Gait: (0) Normal/Bedrest/Immobile Mental Status: (0) Oriented to Own Ability Fall Score: 0 Fall Risk Score Definition: No Risk: No action required Pain Presence: None/Denies Pain Type: N/A Membrane Status: Intact Vaginal Bleeding: None Datetime: 05/25/2017 19:15 Stage of : Antepartum Datetime: 05/25/2017 19:00 Stage of : Antepartum Maternal Assessment Level of Consciousness: Fully Conscious DTR's/Clonus: DTRs 1+ Headache: Denies Blurred Vision: No Breath Sounds, Left: Clear and Equal Breath Sounds, Right: Clear and Equal Nausea/Vomiting: Denies RUQ Epigastric Pain: Denies Facial Edema: None Labor Evaluation Frequency: 5 IN AN HOUR Monitor Mode: External Duration (sec)2399: 50-80 Quality: Mild Pattern: Normal: <= 5 Contractions in 10 Minutes Resting Tone [place]: Relaxed Heart Rate FHR Baseline Rate: 140 Monitor Mode: External US FHR Baseline Changes: No Baseline Change Variability: Moderate 6-25 bpm Accelerations: 15X15 Decelerations: None Category: Category I Pain Assessment Pain Scale: 0 Pain Presence: None/Denies Pain Goal: 3 Datetime: 05/25/2017 18:00 Stage of : Antepartum Maternal Assessment Level of Consciousness: Fully Conscious DTR's/Clonus: DTRs 1+ Headache: Denies Blurred Vision: No Breath Sounds, Left: Clear and Equal Breath Sounds, Right: Clear and Equal Nausea/Vomiting: Denies RUQ Epigastric Pain: Denies Facial Edema: None Labor Evaluation Frequency: 5 IN AN HOUR Monitor Mode: External Duration (sec)2399: 50-80 Quality: Mild Pattern: Normal: <= 5 Contractions in 10 Minutes Resting Tone [place]: Relaxed Heart Rate FHR Baseline Rate: 140 Monitor Mode: External US FHR Baseline Changes: No Baseline Change Variability: Moderate 6-25 bpm Accelerations: 10X10 Decelerations: None Category: Category I Pain Assessment Pain Scale: 0 Pain Presence: None/Denies Pain Goal: 3 Datetime: 05/25/2017 17:00 Stage of : Antepartum Maternal Assessment Level of Consciousness: Fully Conscious DTR's/Clonus: DTRs 1+ Headache: Denies Blurred Vision: No Nausea/Vomiting: Denies RUQ Epigastric Pain: Denies Facial Edema: None Labor Evaluation Frequency: 4 IN AN HOUR Monitor Mode: External Duration (sec)2399: 60-90 Quality: Mild Pattern: Normal: <= 5 Contractions in 10 Minutes Resting Tone [place]: Relaxed Heart Rate FHR Baseline Rate: 140 Monitor Mode: External US FHR Baseline Changes: No Baseline Change Variability: Moderate 6-25 bpm Accelerations: 15X15 Decelerations: None Category: Category I Pain Assessment Pain Scale: 0 Pain Presence: None/Denies Pain Goal: 3 Datetime: 05/25/2017 16:00 Maternal Assessment Level of Consciousness: Fully Conscious DTR's/Clonus: DTRs 1+ Headache: Denies Blurred Vision: No Breath Sounds, Left: Clear and Equal Breath Sounds, Right: Clear and Equal Nausea/Vomiting: Denies RUQ Epigastric Pain: Denies Facial Edema: None Labor Evaluation Frequency: 8 IN AN HOUR Monitor Mode: External Duration (sec)2399: 60-80 Quality: Mild Pattern: Normal: <= 5 Contractions in 10 Minutes Resting Tone [place]: Relaxed Heart Rate FHR Baseline Rate: 140 Monitor Mode: External US FHR Baseline Changes: No Baseline Change Variability: Moderate 6-25 bpm Accelerations: 15X15 Decelerations: None Category: Category I Pain Assessment Pain Scale: 0 Pain Presence: None/Denies Pain Goal: 3 Datetime: 05/25/2017 15:30 Stage of : Antepartum Datetime: 05/25/2017 15:00 Stage of : Antepartum Bedside Blood Glucose: 105 Labor Evaluation Frequency: 9 IN AN HOUR Monitor Mode: External Duration (sec)2399: 50-80 Quality: Mild Pattern: Normal: <= 5 Contractions in 10 Minutes Resting Tone [place]: Relaxed Heart Rate FHR Baseline Rate: 130 Monitor Mode: External US FHR Baseline Changes: No Baseline Change Variability: Moderate 6-25 bpm Accelerations: 15X15 Decelerations: None Category: Category I Pain Assessment Pain Scale: 2 Pain Presence: Intermittent Pain Type: Cramping; Contraction Pain Location: Abdomen Pain Goal: 3 Pain Relief Measures: Comfort Measures Datetime: 05/25/2017 14:00 Stage of : Antepartum Labor Evaluation Frequency: 5 IN AN HOUR Monitor Mode: External Duration (sec)2399: 50-70 Quality: Mild Pattern: Normal: <= 5 Contractions in 10 Minutes Resting Tone [place]: Relaxed Heart Rate FHR Baseline Rate: 130 Monitor Mode: External US FHR Baseline Changes: No Baseline Change Variability: Moderate 6-25 bpm Accelerations: 10X10 Decelerations: None Category: Category I Pain Assessment Pain Scale: 2 Pain Presence: Intermittent Pain Type: Cramping; Contraction Pain Location: Abdomen Pain Goal: 3 Pain Relief Measures: Comfort Measures Datetime: 05/25/2017 13:00 Stage of : Antepartum Labor Evaluation Frequency: 5-7 Monitor Mode: External Duration (sec)2399: 40-70 Quality: Mild Pattern: Normal: <= 5 Contractions in 10 Minutes Resting Tone [place]: Relaxed Heart Rate FHR Baseline Rate: 140 Monitor Mode: External US FHR Baseline Changes: No Baseline Change Variability: Moderate 6-25 bpm Accelerations: 15X15 Decelerations: None Category: Category I Pain Assessment Pain Scale: 2 Pain Presence: Intermittent Pain Type: Cramping; Contraction Pain Location: Abdomen Pain Goal: 3 Pain Relief Measures: Comfort Measures Datetime: 05/25/2017 12:26 Stage of : Antepartum Datetime: 05/25/2017 12:00 Stage of : Antepartum Labor Evaluation Frequency: 2 IN AN HOUR Monitor Mode: External Duration (sec)2399: 40 Quality: Mild Pattern: Normal: <= 5 Contractions in 10 Minutes Resting Tone [place]: Relaxed Heart Rate FHR Baseline Rate: 140 Monitor Mode: External US FHR Baseline Changes: No Baseline Change Variability: Moderate 6-25 bpm Accelerations: 10X10 Decelerations: None Category: Category I Pain Assessment Pain Scale: 0 Pain Presence: None/Denies Pain Goal: 3 Datetime: 05/25/2017 11:20 Bedside Blood Glucose: 108 Datetime: 05/25/2017 11:00 Stage of : Antepartum Labor Evaluation Frequency: 4 IN AN HOUR Monitor Mode: External Duration (sec)2399: 40-70 Quality: Mild Pattern: Normal: <= 5 Contractions in 10 Minutes Resting Tone [place]: Relaxed Contraction Comments: PT,S BLADDER WAS FULL PT EMPTIED THE BLADDER. Heart Rate FHR Baseline Rate: 140 Monitor Mode: External US FHR Baseline Changes: No Baseline Change Variability: Moderate 6-25 bpm Accelerations: 15X15 Decelerations: None Category: Category I Pain Assessment Pain Scale: 0 Pain Presence: None/Denies Pain Goal: 3 Datetime: 05/25/2017 09:15 Stage of : Antepartum Datetime: 05/25/2017 08:00 Stage of : Antepartum Pain Assessment Pain Scale: 0 Pain Presence: None/Denies Pain Goal: 3 Datetime: 05/25/2017 07:58 Bedside Blood Glucose: 82 Datetime: 05/25/2017 07:49 Assessment Type: Ongoing Assessment Maternal Assessment Level of Consciousness: Fully Conscious DTR's/Clonus: DTRs 2+; No Clonus Headache: Denies Blurred Vision: No Respiratory Effort: Unlabored; Regular Rhythm; Equal Expansion Breath Sounds, Left: Clear and Equal Breath Sounds, Right: Clear and Equal Nausea/Vomiting: Denies RUQ Epigastric Pain: Denies Lower Extremities Edema: None Degree: None Upper Extremities Edema: None Degree: None Facial Edema: None Fall Risk Assessment History of Falling: (0) No Secondary Diagnosis: (0) No Ambulatory Aid: (0) Bedrest/Nurse Assist IV Therapy: (0) No Gait: (0) Normal/Bedrest/Immobile Mental Status: (0) Oriented to Own Ability Fall Score: 0 Fall Risk Score Definition: No Risk: No action required Datetime: 05/25/2017 07:15 Stage of : Antepartum Datetime: 05/25/2017 06:10 Stage of : Antepartum Pain Presence: None/Denies Pain Type: N/A Pain Assessment Comments: PT REMAINS ASLEEP WITH EVEN UMLABORED BREATHING. Membrane Status: Intact Vaginal Bleeding: None Datetime: 05/25/2017 05:09 Stage of : Antepartum Temperature Route: Oral Contraction Comments: PT DENIES CRAMPING Comments: PT STATES + FM Pain Presence: None/Denies Pain Type: N/A Pain Assessment Comments: PT SLEEPING BUT EASILY AROUSED Membrane Status: Intact Vaginal Bleeding: None Datetime: 05/25/2017 02:45 Stage of : Antepartum Pain Presence: None/Denies Pain Type: N/A Pain Assessment Comments: PT SLEEPING WITH EVEN UNLABORED BREATHING Datetime: 05/25/2017 01:48 Stage of : Antepartum Pain Presence: PT SLEEPING WITH EVEN UNLABORED BREATHING. Datetime: 05/24/2017 23:19 Stage of : Antepartum Temperature Route: Oral Contraction Comments: PT DENEIS CRAMPING Comments: PT STATES + FM Pain Presence: None/Denies Pain Type: N/A Pain Assessment Comments: PT SLEEPING BUT EASILY AROUSED Datetime: 05/24/2017 21:16 Stage of : Antepartum Pain Presence: None/Denies Pain Type: N/A Pain Assessment Comments: PT DENIES ANY NEEDS AT THIS TIME Datetime: 05/24/2017 21:10 Stage of : Antepartum Labor Evaluation Frequency: X2 Monitor Mode: External Duration (sec)2399: 60-70 Quality: Mild Resting Tone [place]: Relaxed Heart Rate FHR Baseline Rate: 140 Monitor Mode: External US Variability: Moderate 6-25 bpm Accelerations: 15X15 Decelerations: None Category: Category I Pain Presence: None/Denies Pain Type: N/A Datetime: 05/24/2017 20:09 Monitor Mode: External Contraction Comments: APPLIED FOR NST Monitor Mode: External US Comments: APPLIED FOR NST Datetime: 05/24/2017 19:47 Stage of : Antepartum Bedside Blood Glucose: 93 Datetime: 05/24/2017 19:44 Stage of : Antepartum Assessment Type: Ongoing Assessment Maternal Assessment Level of Consciousness: Fully Conscious DTR's/Clonus: DTRs 2+; No Clonus Headache: Denies Blurred Vision: No Respiratory Effort: Unlabored; Regular Rhythm; Equal Expansion Breath Sounds, Left: Clear and Equal Breath Sounds, Right: Clear and Equal Nausea/Vomiting: Denies RUQ Epigastric Pain: Denies Lower Extremities Edema: None Degree: None Upper Extremities Edema: None Degree: None Facial Edema: None Fall Risk Assessment History of Falling: (0) No Secondary Diagnosis: (0) No Ambulatory Aid: (0) Bedrest/Nurse Assist IV Therapy: (0) No Gait: (0) Normal/Bedrest/Immobile Mental Status: (0) Oriented to Own Ability Fall Score: 0 Fall Risk Score Definition: No Risk: No action required Contraction Comments: PT DENIES CRAMPING Comments: PT STATES + FM Pain Presence: None/Denies Pain Type: N/A Membrane Status: Intact Vaginal Bleeding: None Datetime: 05/24/2017 19:18 Stage of : Antepartum Datetime: 05/24/2017 19:00 Stage of : Antepartum Pain Assessment Pain Scale: 0 Pain Presence: None/Denies Pain Goal: 3 Datetime: 05/24/2017 15:00 Bedside Blood Glucose: 107 Datetime: 05/24/2017 14:05 Stage of : Antepartum Bedside Blood Glucose: 109 Datetime: 05/24/2017 13:09 Bedside Blood Glucose: 67 Datetime: 05/24/2017 12:48 Bedside Blood Glucose: 65 Datetime: 05/24/2017 12:30 Bedside Blood Glucose: 55 Datetime: 05/24/2017 11:00 Bedside Blood Glucose: 90 Datetime: 05/24/2017 08:08 Assessment Type: Ongoing Assessment Maternal Assessment Level of Consciousness: Fully Conscious DTR's/Clonus: DTRs 2+; No Clonus Headache: Denies Blurred Vision: No Respiratory Effort: Unlabored; Regular Rhythm; Equal Expansion Breath Sounds, Left: Clear and Equal Breath Sounds, Right: Clear and Equal Nausea/Vomiting: Denies RUQ Epigastric Pain: Denies Lower Extremities Edema: None Degree: None Upper Extremities Edema: None Degree: None Facial Edema: None Fall Risk Assessment History of Falling: (0) No Secondary Diagnosis: (0) No Ambulatory Aid: (0) Bedrest/Nurse Assist IV Therapy: (0) No Gait: (0) Normal/Bedrest/Immobile Mental Status: (0) Oriented to Own Ability Fall Score: 0 Fall Risk Score Definition: No Risk: No action required Datetime: 05/24/2017 08:00 Stage of : Antepartum Labor Evaluation Frequency: NONE Monitor Mode: External Resting Tone [place]: Relaxed Heart Rate FHR Baseline Rate: 140 Monitor Mode: External US FHR Baseline Changes: No Baseline Change Variability: Moderate 6-25 bpm Accelerations: 15X15 Decelerations: None Category: Category I Pain Assessment Pain Scale: 0 Pain Presence: None/Denies Pain Goal: 3 Datetime: 05/24/2017 07:50 Bedside Blood Glucose: 85 Datetime: 05/24/2017 06:50 Labor Evaluation Frequency: 0 Monitor Mode: External Duration (sec)2399: DENIES Resting Tone [place]: Relaxed Heart Rate FHR Baseline Rate: 140 Monitor Mode: External US Variability: Moderate 6-25 bpm Accelerations: 15X15 Decelerations: None Category: Category I Pain Presence: None/Denies Datetime: 05/24/2017 05:50 Labor Evaluation Frequency: x1 Monitor Mode: External Duration (sec)2399: 60 Quality: Mild Resting Tone [place]: Relaxed Heart Rate FHR Baseline Rate: 140 Monitor Mode: External US Variability: Moderate 6-25 bpm Accelerations: 15X15 Decelerations: None Category: Category I Pain Presence: None/Denies Pain Type: N/A Datetime: 05/24/2017 05:44 Temperature Route: Oral Pain Presence: None/Denies Datetime: 05/24/2017 04:50 Labor Evaluation Frequency: 0 Monitor Mode: External Duration (sec)2399: denies Resting Tone [place]: Relaxed Heart Rate FHR Baseline Rate: 140 Monitor Mode: External US Variability: Moderate 6-25 bpm Accelerations: 15X15 Decelerations: None Category: Category I Pain Presence: None/Denies Datetime: 05/24/2017 03:50 Labor Evaluation Frequency: irregular Monitor Mode: External Duration (sec)2399: 50-70 Quality: Mild Resting Tone [place]: Relaxed Heart Rate FHR Baseline Rate: 140 Monitor Mode: External US Variability: Moderate 6-25 bpm Accelerations: 15X15 Decelerations: None Category: Category I Pain Presence: None/Denies Datetime: 05/24/2017 02:50 Labor Evaluation Frequency: irregular Monitor Mode: External Duration (sec)2399: 40-60 Quality: Mild Resting Tone [place]: Relaxed Heart Rate FHR Baseline Rate: 140 Monitor Mode: External US Variability: Moderate 6-25 bpm Accelerations: 10X10 Decelerations: None Category: Category II Pain Presence: None/Denies Datetime: 05/24/2017 01:50 Labor Evaluation Frequency: OCASSIONAL Monitor Mode: External Duration (sec)2399: 40-60 Quality: Mild Resting Tone [place]: Relaxed Heart Rate FHR Baseline Rate: 150 Monitor Mode: External US Variability: Moderate 6-25 bpm Accelerations: 15X15 Decelerations: None Category: Category I Pain Assessment Pain Scale: 2 Pain Presence: Intermittent Pain Type: Contraction Pain Location: Abdomen; Back Pain Relief Measures: Comfort Measures Datetime: 05/24/2017 00:48 Stage of : Antepartum Assessment Type: Admission Assessment Maternal Assessment Level of Consciousness: Fully Conscious DTR's/Clonus: DTRs 2+; No Clonus Headache: Denies Blurred Vision: No Respiratory Effort: Unlabored; Regular Rhythm; Equal Expansion Breath Sounds, Left: Clear and Equal Breath Sounds, Right: Clear and Equal Nausea/Vomiting: Denies RUQ Epigastric Pain: Denies Lower Extremities Edema: None Degree: None Upper Extremities Edema: None Degree: None Facial Edema: None Temperature Route: Oral Fall Risk Assessment History of Falling: (0) No Secondary Diagnosis: (0) No Ambulatory Aid: (0) Bedrest/Nurse Assist IV Therapy: (0) No Gait: (0) Normal/Bedrest/Immobile Mental Status: (0) Oriented to Own Ability Fall Score: 0 Fall Risk Score Definition: No Risk: No action required Monitor Mode: External (Annotations: PLACED) Pain Assessment Pain Scale: 2 Pain Presence: Intermittent Pain Type: Contraction Pain Location: Abdomen Pain Relief Measures: Comfort Measures Datetime: 05/18/2017 19:30 Fall Score: 0 Fall Risk Score Definition: No Risk: No action required Datetime: 05/18/2017 15:57 EGA: 32.2 Datetime: 05/18/2017 14:55 Fall Score: 0 Fall Risk Score Definition: No Risk: No action required Datetime: 05/15/2017 17:06 EGA: 31.6 Datetime: 05/15/2017 13:45 Fall Score: 0 Fall Risk Score Definition: No Risk: No action required Datetime: 05/15/2017 13:30 Fall Score: 0 Fall Risk Score Definition: No Risk: No action required
[2017-05-31] MEDS ORDERED: MAGNESIUM SULFATE 4 GM/100 ML 100 ML IV ONE (17:30)
[2017-05-31] MEDS ORDERED: LACTATED RINGER'S 1,000 ML IV PRN (18:08)
[2017-05-31] MEDS ORDERED: AMPICILLIN 2 GM/NS (PMX) 100 ML IV ONE (18:30)
[2017-05-31] MEDS ORDERED: OXYTOCIN 30 UNITS/LR 500 ML IV SCH ×2 (18:30)
[2017-05-31] MEDS ORDERED: IBUPROFEN 600 MG TAB PO PRN (18:30)
[2017-05-31] MEDS ORDERED: OXYTOCIN 30 UNITS/LR 500 ML IV PRN (18:30)
[2017-05-31] MEDS ORDERED: LIDOCAINE 1% (MPF) 30 ML INJ INJ PRN (18:30)
[2017-05-31] MEDS ORDERED: METHYLERGONOVINE 0.2 MG INJ IM PRN (18:30)
[2017-05-31] MEDS ORDERED: MISOPROSTOL 200 MCG TAB PR PRN (18:30)
[2017-05-31] MEDS ORDERED: BUTORPHANOL 2 MG INJ IV PRN (18:30)
[2017-05-31] MEDS ORDERED: CARBOPROST 250 MCG INJ IM PRN (18:30)
[2017-05-31 18:40] LABS: BASOPHILS % 0.4 % (0.0-2.0); EOSINOPHILS # 0.1 10^3/ul (0.0-0.5); EOSINOPHILS % 0.7 % (0.0-7.0); HEMATOCRIT 39.7 % (37.0-47.0); HEMOGLOBIN 12.7 g/dl (12.0-16.0); LYMPHOCYTES # 1.3 10^3/ul (0.8-2.9); MEAN CORPUSCULAR VOLUME 87.6 fl (82.0-101.0); MEAN PLATELET VOLUME 11.4 fl (7.4-10.4); MONOCYTE # 0.5 10^3/ul (0.3-0.9); MONOCYTES % 5.5 % (0.0-11.0); NEUTROPHIL # 6.3 10^3/ul (1.6-7.5); NEUTROPHILS % 76.3 % (39.0-77.0); PLATELET COUNT 218 10^3/UL (140-415); RED BLOOD COUNT 4.53 10^6/ul (4.20-5.40); RED CELL DISTRIBUTION WIDTH 14.1 % (11.5-14.5); WHITE BLOOD COUNT 8.3 10^3/ul (4.8-10.8)
[2017-05-31 18:44] LABS: INR 0.8; PROTIME 11.1 Sec (12.2-14.2); PT RATIO 0.9
[2017-05-31 18:45] LABS: PARTIAL THROMBOPLASTIN TIME 28.6 Sec (25.0-35.0)
[2017-05-31 18:55] LABS: ALBUMIN 3.8 g/dl (3.3-4.9); BILIRUBIN,INDIRECT 0.2 mg/dl (0-1.1); BILIRUBIN,TOTAL 0.2 mg/dl (0.2-1.3); CALCIUM 9.3 mg/dl (8.4-10.2); CREATININE 0.55 mg/dl (0.44-1.00); POTASSIUM 4.6 mmol/L (3.5-5.1); TOTAL PROTEIN 7.6 g/dl (6.1-8.1)
[2017-05-31] MEDS: MAGNESIUM SULFATE 20 GM/500 ML 500 ML IV SCH (18:56)
[2017-05-31 21:10] LABS: ADD UMIC YES; UR ASCORBIC ACID NEGATIVE (NEGATIVE); UR BILIRUBIN (Dip) NEGATIVE (NEGATIVE); UR BLOOD (Dip) 3+ mg/dL (NEGATIVE); UR CLARITY CLEAR (CLEAR); UR COLOR YELLOW (YELLOW); UR GLUCOSE (Dip) NEGATIVE (NEGATIVE); UR KETONES (Dip) 1+ mg/dL (NEGATIVE); UR LEUKOCYTE ESTERASE (Dip) NEGATIVE Leu/ul (NEGATIVE); UR NITRITE (Dip) NEGATIVE (NEGATIVE); UR RBC 55 /HPF (0-5); UR SPECIFIC GRAVITY (Dip) 1.015 (1.003-1.030); UR TOTAL PROTEIN (Dip) NEGATIVE (NEGATIVE); UR UROBILINOGEN (Dip) NEGATIVE (NEGATIVE)
--- NOTE | 2017-05-31 21:22 | RADRPT ---
PROCEDURE: Limited OB ultrasound CLINICAL INDICATION: Evaluate position. Contractions. TECHNIQUE: Sonographic evaluation to assess the position was performed. Transabdominal imag ing of the gravid uterus was performed. COMPARISON: OB ultrasound from earlier the same date. FINDINGS: There is a single living intrauterine gestation in cephalic position with an anterior placenta. Ther e is cardiac activity at 132 beats per minute. IMPRESSION: 1. Single living intrauterine gestation in cephalic position with an anterior placenta. RPTAT: [facility] Physician Suleiman Date Time Electronically viewed and signed by Garfield Romero Physician on 05/31/2017 21:22 /
--- NOTE | 2017-05-31 21:26 | RADRPT ---
PROCEDURE: US OB. CLINICAL INDICATION: Macrosomia. TECHNIQUE: Multiple sonographic images of the pelvis were obtained. Transabdominal imaging only w as performed. The images were reviewed on a PACS workstation. COMPARISON: Earlier study from the same date. FINDINGS: There is a single living intrauterine gestation in cephalic position. There is an anterior placenta. There is no evidence of previa. Adequate amnionic fluid is demonstrated. Active cardiac motion is seen at 138 beats per minute. The biparietal diameter is 8.15 cm. The head circumference is 29.34 cm. The abdominal circumference is 31.79 cm. The femur length is 6.65 cm. Consistent with: 78-hpkm-7-day gestation Estimated weight is 2480 plus or minus 372 g IMPRESSION: 1. Single living intrauterine gestation in cephalic position with a mean gestational age by ultraso und of 33 weeks 6 days plus or minus 17-day with estimated date of delivery of 07/13/2017. RPTAT: [facility] Physician Suleiman Date Time Electronically viewed and signed by Physician Suleiman on 05/31/2017 21:26 /
[2017-05-31] MEDS ORDERED: AMPICILLIN 1 GM/NS (PMX) 50 ML IV SCH (21:30)
--- NOTE | 2017-05-31 22:51 | HP ---
Date/Time of Note Date/Time of Note DATE: 05/31/17 TIME: 22:46 OB - History Hx of Present Free Text/Dictation 26 years old with IUP at 34 weeks and 1 day with care with Dr. Mendoza presented to the hospital with complaint of uterine contractions. She was noted to be 3 cm dilated and 80 % effaced. OB History significant for history of GDM A2 , on Glyburide and poly hydramnios. Her BELEM was 24. Denies any LOF, or decreased movement Had history of contractions, last week was admitted and received one dose of steriod. Had not completed the full course. Estimated Due Date: Jul 11, 2017 : 1 Para: 0 Spontaneous : 0 Care: Other Obstetrical Complications: Gestational Diabetes, Other (Polyhydramnios) Medical Complications: None Other Concerns: GDM A2, Polyhydramnios Past Family/Social History * Past Medical, Surgical, Family and Obstetric Histories reviewed from chart. OB Admission Exam Vital Signs Vital Signs Vital Signs Date Time Temp Pulse Resp B/P Pulse Ox O2 Delivery O2 Flow Rate FiO2 05/31/17 15:36 98.5 88 18 110/75 98 Room Air Physical Exam HEENT: WNL Lungs: Clear Abdomen: WNL Extremities: Normal Reflexes: Normal Cervical Dilatation: 3cm Effacement: 75% Station: -1 Membranes: Intact Heart Rate: 130's Accelerations: Accelerations Present Decelerations: No Decelerations Varibility: Minimum Contractions on Admission: < 5 Minutes Apart Intensity: Moderate Last 72 hourBlood Glucose Bedside Glucose - 72 Hours Test 05/31/17 21:15 Bedside Glucose 92mg/dL (70-220) Last 72 hours Lab Results CBC & BMP 05/31/17 17:00 Liver Function Test 05/31/17 17:00 Alanine Aminotransferase (ALT/SGPT) 28 Albumin 3.8 Alkaline Phosphatase 215 H Aspartate Amino Transf (AST/SGOT) 54 H Direct Bilirubin 0.00 Total Protein 7.6 Hemoglobin A1C Test 05/31/17 17:00 Hemoglobin A1c 5.5 OB Assessment/Plan Other Assessment: IUP at 34 weeks and 1 day labor GBS Positive Had not completed the full course of steriod Will be admitted Start on Magnesium for tocolysis Start GBS prophylaxis Perinatology and neonatology consultation tomorrow Start steriod Monitor blood sugar closely. Insulin sliding scale if needed HbA1c EFW and presenation with ultrasound MEENU COLE MD May 31, 2017 22:51
[2017-06-01] MEDS ORDERED: LACTATED RINGER'S 1,000 ML IV SCH ×2 (00:30→09:24)
[2017-06-01] MEDS: AMPICILLIN 1 GM/NS (PMX) 50 ML IVPB SCH ×5 (03:06→18:43)
[2017-06-01] MEDS: MAGNESIUM SULFATE 20 GM/500 ML 500 ML IV SCH (05:02)
[2017-06-01] MEDS ORDERED: OXYTOCIN 30 UNITS/LR 500 ML IV PRN (09:30)
[2017-06-01] MEDS ORDERED: CARBOPROST 250 MCG INJ IM PRN (09:30)
[2017-06-01] MEDS ORDERED: MISOPROSTOL 200 MCG TAB PR PRN (09:30)
[2017-06-01] MEDS ORDERED: BUTORPHANOL 2 MG INJ IV PRN (09:30)
[2017-06-01] MEDS ORDERED: METHYLERGONOVINE 0.2 MG INJ IM PRN (09:30)
[2017-06-01] MEDS ORDERED: IBUPROFEN 600 MG TAB PO PRN (09:30)
[2017-06-01] MEDS ORDERED: LIDOCAINE 1% (MPF) 30 ML INJ INJ PRN (09:30)
[2017-06-01] MEDS ORDERED: LACTATED RINGER'S 1,000 ML IV PRN (09:30)
[2017-06-01] MEDS ORDERED: OXYTOCIN 30 UNITS/LR 500 ML IV SCH ×2 (09:30)
[2017-06-01] MEDS: LACTATED RINGER'S 1,000 ML IV SCH ×3 (10:17→23:43)
[2017-06-01 10:36] LABS: ALBUMIN 3.9 g/dl (3.3-4.9); ALBUMIN/GLOBULIN RATIO 1.08; BILIRUBIN,INDIRECT 0.1 mg/dl (0-1.1); BILIRUBIN,TOTAL 0.1 mg/dl (0.2-1.3); CREATININE 0.56 mg/dl (0.44-1.00); TOTAL PROTEIN 7.5 g/dl (6.1-8.1)
[2017-06-01] MEDS ORDERED: CA GLUCONATE (GM) 10% 10ML INJ IV PRN (11:30)
[2017-06-01 11:45] LABS: ADD UMIC YES; UR ASCORBIC ACID NEGATIVE (NEGATIVE); UR BILIRUBIN (Dip) NEGATIVE (NEGATIVE); UR BLOOD (Dip) 2+ mg/dL (NEGATIVE); UR CLARITY CLEAR (CLEAR); UR COLOR STRAW (YELLOW); UR GLUCOSE (Dip) NEGATIVE (NEGATIVE); UR KETONES (Dip) 2+ mg/dL (NEGATIVE); UR LEUKOCYTE ESTERASE (Dip) NEGATIVE Leu/ul (NEGATIVE); UR NITRITE (Dip) NEGATIVE (NEGATIVE); UR RBC 7 /HPF (0-5); UR SQUAMOUS EPITHELIAL CELL FEW /HPF (FEW); UR TOTAL PROTEIN (Dip) NEGATIVE (NEGATIVE); UR UROBILINOGEN (Dip) NEGATIVE (NEGATIVE)
[2017-06-01] MEDS ORDERED: GLUCAGON 1 MG INJ IM PRN (13:00)
[2017-06-01] MEDS ORDERED: GLUCOSE GEL 15 GRAM TUBE BUCCAL PRN (13:00)
[2017-06-01] MEDS ORDERED: DEXTROSE 50% 50 ML SYRINGE IV PRN ×2 (13:00)
[2017-06-01] MEDS ORDERED: GLUCOSE GEL 15 GRAM TUBE PO PRN ×2 (13:00)
[2017-06-01] MEDS ORDERED: INSULIN ASPART [NOVOLOG] 3 ML PEN SC SCH (13:30)
[2017-06-01] MEDS ORDERED: ACCU-CHEK XX SCH ×2 (13:30)
[2017-06-01] MEDS ORDERED: NIFEdipine 10 MG CAP PO SCH (15:00)
--- NOTE | 2017-06-01 19:39 | CONS ---
DATE OF ADMISSION: 05/31/2017 DATE OF CONSULTATION: 06/01/2017 HISTORY OF PRESENT ILLNESS: I was requested by Dr. Anne Ott, primary draftsperson of Ms. Benny mcclain, for consult for prematurity at 34-1/7 weeks, gestational diabetes requiring glyb uride and history of polyhydramnios. Mom is a 26-year-old, 1, para 0, and estimated w eight is 2480 grams. Mom is on glyburide for gestational diabetes. EDC is 07/11/2017. She has pre term labor and is on magnesium sulfate and given 1 dose of betamethasone on 05/31/2017 at 2000 and d ue for the second dose today. Antibiotics started and she continues to have intermittent contractio ns. Cervical dilatation is at 3 cm. Membranes intact. I have spoken to both parents and explained to them about late prematurity, low weight, physio logic immaturity with gestational diabetes, history of polyhydramnios with possible GI problems, hig h risk for sepsis with GBS-positive mom, respiratory distress syndrome, oxygen therapy, possible nee d for respiratory support with bubble CPAP and ventilator, antibiotic therapy for risk for infection , high incidence of hypoglycemia, need for IV fluid therapy and possible central line placement for dextrose administration, jaundice, phototherapy, feeding problems with intolerance, risk for necroti zing enterocolitis and slow nippling and long-term risk for neurodevelopmental problems in view of p rematurity and physiologic immaturity with gestational diabetes. Parents have been told the importa nce of and breast milk for a premature baby and in general for nutrition. Par ents seem to understand the risks with premature delivery and gestational diabetes and have had appr opriate questions that were answered. I thank you very much for allowing me to take part in the care of this patient. Will follow the mom and baby as needed. Dictated By: JIGNESH KIM/SAMMY Conf#: [id number] DID#: [id number]
--- NOTE | 2017-06-01 19:51 | RADRPT ---
PROCEDURE: US biophysical profile. CLINICAL INDICATION: well-being. TECHNIQUE: Multiple sonographic images of the uterus were obtained. The images were revi ewed on a PACS workstation. COMPARISON: OB ultrasound 05/31/2017. FINDINGS: There is a single live intrauterine gestation. heart rate is 128 beats per minute. The position is cephalic. The placenta is anterior, grade 1-2. The BELEM is 18.5 cm. Breathing Movement: 2 Gross Body Movement: 2 Tone: 2 Qualitative Amniotic Fluid Volume: 2 TOTAL: 8 IMPRESSION: 1. Single viable intrauterine gestation. 2. Biophysical profile = 03/14. 3. BELEM = 18.5 cm. RPTAT: HH .Randal Quiroz MD, MD Date Time Electronically viewed and signed by .Randal Qurioz MD, MD on 06/01/2017 19:51 .N/
[2017-06-01] MEDS ORDERED: BETAMET NA PHOS/AC(6 MG/ML) 5ML INJ IM ONE (19:53)
[2017-06-01] MEDS ORDERED: CEFAZOLIN 2 GM/50 ML (PMX) 50 ML IVPB ONE (21:13)
[2017-06-01] MEDS ORDERED: CEFAZOLIN 2 GM/50 ML (PMX) 50 ML IVPB SCH (21:30)
[2017-06-01] MEDS ORDERED: morphine SULFATE/PF (10 MG/10 ML) INJ ONE (22:08)
[2017-06-01] MEDS ORDERED: FENTAnyl 50 MCG/ML VIAL ONE (22:08)
[2017-06-01] MEDS ORDERED: PHENYLephrine (100 MCG/ML) 5ML SYG ONE (22:08)
[2017-06-01] MEDS ORDERED: ONDANSETRON 4 MG INJ ONE (22:22)
[2017-06-01] MEDS ORDERED: OXYTOCIN 30 UNITS/LR 1,000 ML IV ONE (23:09)
[2017-06-01] MEDS: OXYTOCIN 30 UNITS/LR 500 ML IV SCH (23:43)
--- NOTE | 2017-06-01 23:43 | SIPON ---
Date/Time of Note Date/Time of Note DATE: 06/01/17 TIME: 23:38 Operative Report Preoperative Diagnosis 34.2 weeks in labor Gestational diabetes diet controlled Polyhydramnios Nonreassuring heart tones cephalopelvic disproportion Postoperative Diagnosis Same plus baby girl Apgars 6 and 8 Cord around the neck 1 tight Operation/Procedure Performed Primary low segment transverse section Surgeon see signature line director of assisted living Dr. Caldwell Anesthesia: spinal Estimated blood loss: other Transfusion Required none Specimen Placenta Grafts/Implants none Complications none MELITA STEARNS MD Jun 01, 2017 23:43
[2017-06-02] MEDS ORDERED: LANOLIN 7 GM TUBE TOP PRN
[2017-06-02] MEDS ORDERED: NA PHOSPHATE/BIPHOS 133 ML ENEMA PR PRN
[2017-06-02] MEDS ORDERED: ONDANSETRON 4 MG INJ IV PRN ×2
[2017-06-02] MEDS ORDERED: OXYTOCIN 30 UNITS/LR 500 ML IV PRN
[2017-06-02] MEDS ORDERED: ZOLPIDEM 5 MG TAB PO PRN
[2017-06-02] MEDS ORDERED: MISOPROSTOL 200 MCG TAB PR PRN
[2017-06-02] MEDS ORDERED: NALOXONE (0.4 MG/ML) INJ IV PRN
[2017-06-02] MEDS ORDERED: METHYLERGONOVINE 0.2 MG TAB PO PRN
[2017-06-02] MEDS ORDERED: HYDROCODONE/APAP (5/325) TAB PO PRN
[2017-06-02] MEDS ORDERED: DIPHENHYDRAMINE 50 MG INJ IV PRN
[2017-06-02] MEDS ORDERED: CARBOPROST 250 MCG INJ IM PRN
[2017-06-02] MEDS ORDERED: METHYLERGONOVINE 0.2 MG INJ IM PRN
[2017-06-02] MEDS ORDERED: HYDROmorphONE 0.5 MG/0.5 ML SYG IV PRN ×2
[2017-06-02] MEDS ORDERED: KETOROLAC 30 MG INJ IV PRN
[2017-06-02] MEDS ORDERED: LABETALOL 200 MG TAB PO PRN (00:30)
--- NOTE | 2017-06-02 01:00 | PREOPHP ---
DATE OF ADMISSION: 05/31/2017 HISTORY OF PRESENT ILLNESS: This is a 26-year-old female, 1, para 0, patient with an EDC of 07/06/2017. This patient came for care since early and she had gestational diab etes later in . She gained about 20 pounds during the and the patient was diagno sed to have gestational diabetes around 26 weeks. This patient had been evaluated for diabetes duri ng the and her hemoglobin A1c was 5.6 in the first trimester with the possibility of overt diabetes ____ controlled. The patient was given instructions of diet several times and she did not reach the normal levels of blood sugar for which she was placed on oral medicine for diabetes and w e could not control it even with that so we admitted her and she was given the betamethasone shot wh ile she was admitted for diabetes control. She was taken off the medication and a strict diabetic d iet to control her. She was sent home on Procardia because of some contractions. The patient has b een readmitted last night for contractions. She was 1 to 2 cm yesterday and today she is at 4 cm wi th active labor. We have given her magnesium sulfate rescue dose and also we put her on Procardia, which did not stop her contractions. At this moment, the patient is 4 cm dilated, 100% effaced and the presentation is very high up in the pelvis higher than -3 with ____ touching the baby's head. T he monitoring on the strip has shown variable heart tones with loss of [id number] variabilit y for long periods of time. The patient was also assessed for CPD and she was found to be very smal l, about 4 feet 9 inches and the much taller than her. The evaluation for ____ was also sen wing that the fetus was completely with disproportion of the head to the pelvic inlet. This had bee n instructed to the patient before admission to the hospital and this was a known fact that she was very small and the fetus was possibly with cephalopelvic disproportion. At this time she is in acti ve labor with 4 cm dilatation. The presentation is not even reachable. The heart tones of th e baby was with nonreassuring pattern and diabetes has been controlled with diet. She is being offe red a section due to these reasons. ALLERGIES: THE PATIENT IS NOT ALLERGIC TO ANY MEDICATION. SOCIAL HISTORY: She does not drink or smoke. There is no history of drug addiction and she had no major surgical or medical antecedents. FAMILY HISTORY: Diabetes on her mother and heart disease on her father. PHYSICAL EXAMINATION: VITAL SIGNS: She is 4 feet 9 inches. The weight is at this time 150, blood pressure is 110/60, pul se is 80, respirations 16. HEAD AND NECK: Normal. CHEST: Clear. HEART: Normal sinus rhythm. LUNGS: Clear. BREASTS: Soft, nontender, no masses. ABDOMEN: Soft. Uterus with contractions every 2 to 3 minutes and patient is in pain. The he art tones were normal. PELVIC: The cervix 4 cm dilated, 100% effaced with a presentation that is at -3, nonpalpable presen tation through pelvic exam. Membranes are intact with the possibility of a leak due to the fact the re was a big pool of possible amniotic fluid with possible high leak. EXTREMITIES: Normal. The tone of the muscles were normal with normal reflexes and some edema. DIAGNOSES: 1. A 34 weeks' , in active labor. 2. Nonreassuring heart tones. 3. Gestational diabetes. 4. Cephalopelvic disproportion. PLAN: She is undergoing a primary section. She has been advised of the possible risks and possible complications of the surgery with her alternatives and options. Written information was p rovided. She had no more questions and agreed to go ahead with the procedure with full understandin g and no more questions. Dictated By: MELITA SABILLON/SAMMY Conf#: [id number] DID#: [id number]
--- NOTE | 2017-06-02 01:47 | OPR ---
DATE OF OPERATION: PROCEDURE: Primary low segment transverse section. PREOPERATIVE DIAGNOSES: 1. A 34-week and 2-day , in labor. 2. Gestational diabetes. 3. Cephalopelvic disproportion. 4. Non-reassuring heart tones. 5. Polyhydramnios. POSTOPERATIVE DIAGNOSES: 1. A 34-week and 2-day , in labor. 2. Gestational diabetes. 3. Cephalopelvic disproportion. 4. Non-reassuring heart tones. 5. Polyhydramnios. 6. Baby girl, Apgars 6 and 8. FIELD TRAINING MANAGER: Dr. Caldwell. ANESTHESIOLOGIST: Dr. Lenz. ANESTHESIA: Spinal. DESCRIPTION OF PROCEDURE: The patient was given spinal anesthesia, placed in the supine position. The abdomen was prepped and draped. A Roman catheter was placed in the bladder, and a transverse in cision was made 2 cm up the pubic bone transversely for about 10 cm. The abdomen was opened in laye rs without difficulty. The abdominal cavity was reached. The lower uterine segment was identified. The bladder flap was made. The uterus was opened in the midline with a scalpel, and the incision was increased laterally on either side for about 3 inches. There was polyhydramnios with abundant w ater coming out. The baby's head was delivered after the cord was passed over the head, which was s lightly tight, and the cord was clamped and cut. The baby was handed over to the tooling engineering tech team as soon as the baby was born. A cord blood was obtained. Placenta was removed. The uterus was cl eaned out and closed in 2 layers using #1 Monocryl continuous suture imbedding the first line of sut ures. Hemostasis was good. The tubes and ovaries were normal. The abdominal cavity was cleaned ou t. Interceed was left in the area of the incision. The peritoneum was closed with a 2-0 Vicryl sut ure. The fascia was closed with an 0 PDS looped suture. Subcutaneous tissue was closed with a 2-0 Vicryl and 3-0 Monocryl subcuticular to the skin. Steri-Strips and Dermabond were also used. The p atient tolerated the procedure well and left the OR awake and stable. Sponge counts and instrument counts were correct. Intravenous antibiotics were given for prophylaxis. Blood loss was about 600 mL. The urine was clear at the end of the procedure. Dictated By: MELITA SABILLON/SAMMY Conf#: [id number] DID#: [id number]
[2017-06-02] MEDS: OXYTOCIN 30 UNITS/LR 500 ML IV SCH (02:13)
--- NOTE | 2017-06-02 02:28 | CONS ---
DATE OF ADMISSION: 05/31/2017 DATE OF CONSULTATION: 06/01/2017 HISTORY OF PRESENT ILLNESS: The patient is a 26-year-old G2, P1, at 34 weeks and 2 days who present ed with complaint of contractions. She was found to be 2 cm dilated, 50% effaced and head at -2 position. She was placed subsequently on magnesium sulfide, given the first dose of betamethason e. Today, the patient was not tolerating the magnesium sulfate well and also heart tone was w ith minimal variability which is the result of magnesium sulfate. Therefore, magnesium sulfate was stopped. She is also diabetic, on no medication, with good sugars. History is completely negative. VITAL SIGNS: Stable. PHYSICAL EXAMINATION: Deferred. heart tones reassuring. Contractions irregular. IMPRESSION: Intrauterine at 34 weeks and 2 days with labor. She was on magnesium sulfate. It was stopped this morning because of reaction to magnesium sulfate maternal and . I subsequently placed her on Procardia 10 mg every 6 hours. She is to receive the second dose of betamethasone this afternoon. RECOMMENDATIONS: As I said, continue with Procardia until 36 weeks of . After 24 hours elapse since the second dose of betamethasone, if the patient is stable, you can cons ider transferring the patient to [facility]. Start sliding scale to cover the postprandial numbers in case there is any need. Otherwise, continu e with the current care. I spoke to Dr. Stearns, the patient and the nurse. Dictated By: TEE OCONNOR MD ST/NTS Conf#: [id number] DID#: [id number] CC: MELITA STEARNS MD;*EndCC*
[2017-06-02 03:00] VITALS: BP 114/77; PULSE 75; RESP 19
[2017-06-02] MEDS: CEFAZOLIN 2 GM/50 ML (PMX) 50 ML IVPB SCH ×3 (05:40→21:56)
[2017-06-02] MEDS: KETOROLAC 30 MG INJ IV SCH ×5 (06:08→23:39)
[2017-06-02] MEDS: METOCLOPRAMIDE 10 MG TAB PO SCH ×4 (06:08→17:24)
[2017-06-02] MEDS: LACTATED RINGER'S 1,000 ML IV SCH ×3 (07:00→23:43)
[2017-06-02 07:20] VITALS: BP 110/76; PULSE 79; RESP 18
[2017-06-02] MEDS: ACCU-CHEK XX SCH ×3 (07:30→15:09)
[2017-06-02] MEDS: SENNA/DOCUSATE NA (8.6MG/50MG) TAB PO SCH ×2 (09:00→21:56)
[2017-06-02] MEDS: LABETALOL 100 MG TAB PO SCH ×2 (09:00→21:00)
[2017-06-02 09:12] LABS: BASOPHILS % 0.1 % (0.0-2.0); HEMATOCRIT 35.1 % (37.0-47.0); HEMOGLOBIN 11.1 g/dl (12.0-16.0); LYMPHOCYTES # 1.3 10^3/ul (0.8-2.9); LYMPHOCYTES % 7.2 % (15.0-51.0); MEAN CORPUSCULAR HEMOGLOBIN 28.2 pg (29.0-33.0); MEAN CORPUSCULAR HGB CONC 31.6 g/dl (32.0-37.0); MEAN CORPUSCULAR VOLUME 89.1 fl (82.0-101.0); MEAN PLATELET VOLUME 11.5 fl (7.4-10.4); MONOCYTE # 1.2 10^3/ul (0.3-0.9); MONOCYTES % 6.8 % (0.0-11.0); NEUTROPHIL # 14.1 10^3/ul (1.6-7.5); PLATELET COUNT 210 10^3/UL (140-415); RED BLOOD COUNT 3.94 10^6/ul (4.20-5.40); RED CELL DISTRIBUTION WIDTH 14.1 % (11.5-14.5); WHITE BLOOD COUNT 17.4 10^3/ul (4.8-10.8)
[2017-06-02 12:11] VITALS: BP 113/77; PULSE 56; RESP 19
--- NOTE | 2017-06-02 13:43 | PN ---
Date/Time of Note Date/Time of Note DATE: 06/02/17 TIME: 13:42 Assessment/Plan Lines/Catheters IV Catheter Type (from Nrsg): Peripheral IV Subjective 24 Hr Interval Summary Doing well first day post Afebrile with no complaints, uterus contracted, incision dry and lochia normal Constitutional: BM, ambulates, flatus, improved, no complaints, urine output Feeding: advancing diet Pain Control: well controlled Detailed Summary Eyes: no complaints ENT: no complaints Respiratory: no complaints Cardiovascular: no complaints Gastrointestinal: no complaints Genitourinary: no complaints Musculoskeletal: no complaints Skin: no complaints Neurologic: no complaints Endocrine: no complaints Lymphatic: no complaints Psychological: nl mood/affect, no complaints Immunologic: no complaints Exam/Review of Systems Vital Signs Vitals Vital Signs Date Time Temp Pulse Resp B/P Pulse Ox O2 Delivery O2 Flow Rate FiO2 06/02/17 12:11 98.2 56 19 113/77 Room Air 06/02/17 04:35 98 21 Intake and Output 06/01/17 06/01/17 06/02/17 15:00 23:00 07:00 Intake Total 1425 ml 1200 ml 550 ml Output Total 1110 ml 2100 ml 2075 ml Balance 315 ml -900 ml -1525 ml Exam Constitutional: alert, oriented, well developed Psych: nl mood/affect, no complaints Head: atraumatic, normocephalic Eyes: EOMI, nl conjunctiva, nl lids, nl sclera ENMT: mucosa pink and moist, nl external ears & nose, nl lips & teeth, nl nasal mucosa & septum Neck: non-tender, supple Respiratory: clear to auscultation, normal air movement Cardiovascular: nl pulses, regular rate and rhythm Gastrointestinal: nl liver, spleen, non-tender, soft Musculoskeletal: nl extremities to inspection, nl gait and stance Extremities: normal pulses Neurological: ENTRY LEVEL II-XII intact, nl mental status, nl speech, nl strength Skin: nl turgor, rash or lesions Lymph: nl lymph nodes Results Result Diagram: 06/02/17 0841 06/01/17 0613 MELITA STEARNS MD Jun 02, 2017 13:43
[2017-06-02] MEDS ORDERED: BISACODYL (EC) 5 MG TAB PO ONE (14:00)
[2017-06-02 16:04] VITALS: BP 124/80; PULSE 64; RESP 18
[2017-06-02 20:20] VITALS: BP 104/72; PULSE 64; RESP 18
[2017-06-02 23:46] LABS: INR 0.86; PROTIME 11.7 Sec (12.2-14.2); PT RATIO 0.9
[2017-06-02 23:47] LABS: PARTIAL THROMBOPLASTIN TIME 25.5 Sec (25.0-35.0)
[2017-06-03] LABS: ALBUMIN 2.4 g/dl (3.3-4.9); ALBUMIN/GLOBULIN RATIO 0.8; CREATININE 0.57 mg/dl (0.44-1.00); POTASSIUM 4.5 mmol/L (3.5-5.1); TOTAL PROTEIN 5.4 g/dl (6.1-8.1); URIC ACID 6.1 mg/dl (3.1-7.9)
[2017-06-03] MEDS: METOCLOPRAMIDE 10 MG TAB PO SCH ×4 (01:16→17:21)
[2017-06-03 04:00] VITALS: BP 100/65; PULSE 74; RESP 18
[2017-06-03] MEDS: KETOROLAC 30 MG INJ IV SCH ×3 (05:44→17:22)
--- NOTE | 2017-06-03 06:45 | PN ---
Date/Time of Note Date/Time of Note DATE: 06/03/17 TIME: 06:42 Assessment/Plan Lines/Catheters IV Catheter Type (from Nrsg): Peripheral IV Subjective 24 Hr Interval Summary Date 2 post Afebrile White count elevated, CBC will be repeated in the morning Incision dry and healing well Uterus contracted Lochia normal, normal reflexes Leg edema No headaches dizziness or epigastric pain Blood pressure stable Blood sugar normal Constitutional: BM, ambulates, flatus, improved, no complaints, urine output Feeding: advancing diet Detailed Summary Eyes: no complaints ENT: no complaints Respiratory: no complaints Cardiovascular: no complaints Gastrointestinal: no complaints Genitourinary: no complaints Musculoskeletal: no complaints Skin: no complaints Neurologic: no complaints Endocrine: no complaints Lymphatic: no complaints Psychological: nl mood/affect, no complaints Immunologic: no complaints Exam/Review of Systems Vital Signs Vitals Vital Signs Date Time Temp Pulse Resp B/P Pulse Ox O2 Delivery O2 Flow Rate FiO2 06/03/17 04:00 98.3 74 18 100/65 Room Air 06/02/17 16:06 97 21 Intake and Output 06/02/17 06/02/17 06/03/17 15:00 23:00 07:00 Intake Total 625 ml 1715 ml Output Total 800 ml 1700 ml 500 ml Balance -175 ml 15 ml -500 ml Exam Constitutional: alert, oriented, well developed Psych: nl mood/affect, no complaints Head: atraumatic, normocephalic Eyes: EOMI, nl conjunctiva, nl lids, nl sclera ENMT: mucosa pink and moist, nl external ears & nose, nl lips & teeth, nl nasal mucosa & septum Neck: non-tender, supple Respiratory: clear to auscultation, normal air movement Cardiovascular: nl pulses, regular rate and rhythm Gastrointestinal: nl liver, spleen, non-tender, soft Musculoskeletal: nl extremities to inspection, nl gait and stance Extremities: normal pulses Neurological: MEDIA MONITOR II-XII intact, nl mental status, nl speech, nl strength Skin: nl turgor, rash or lesions Lymph: nl lymph nodes Results Result Diagram: 06/02/17 0841 06/02/17 [id number] MELITA STEARNS MD Jun 03, 2017 06:45
[2017-06-03] MEDS: ACCU-CHEK XX SCH ×5 (07:30→17:57)
[2017-06-03] MEDS: LACTATED RINGER'S 1,000 ML IV SCH (07:43)
[2017-06-03 08:15] VITALS: BP 106/68; PULSE 83; RESP 18
[2017-06-03] MEDS: SENNA/DOCUSATE NA (8.6MG/50MG) TAB PO SCH ×2 (08:36→21:00)
[2017-06-03 08:42] LABS: ABNORMAL IP MESSAGE 1; BASOPHILS % 0.1 % (0.0-2.0); HEMATOCRIT 33.1 % (37.0-47.0); HEMOGLOBIN 10.5 g/dl (12.0-16.0); LYMPHOCYTES % 11.1 % (15.0-51.0); MEAN CORPUSCULAR HEMOGLOBIN 28.2 pg (29.0-33.0); MEAN CORPUSCULAR HGB CONC 31.7 g/dl (32.0-37.0); MEAN CORPUSCULAR VOLUME 88.7 fl (82.0-101.0); MEAN PLATELET VOLUME 11.2 fl (7.4-10.4); MONOCYTE # 1.6 10^3/ul (0.3-0.9); MONOCYTES % 8.8 % (0.0-11.0); NEUTROPHIL # 13.5 10^3/ul (1.6-7.5); NEUTROPHILS % 74.8 % (39.0-77.0); PLATELET COUNT 210 10^3/UL (140-415); RED BLOOD COUNT 3.73 10^6/ul (4.20-5.40); RED CELL DISTRIBUTION WIDTH 14.3 % (11.5-14.5)
[2017-06-03 08:45] LABS: POSITIVE DIFF @See below
[2017-06-03] MEDS ORDERED: INFLUENZA VIRUS VACCINE 0.5 ML SYG IM* ONE (09:00)
[2017-06-03] MEDS: LABETALOL 100 MG TAB PO SCH ×2 (09:00→21:23)
[2017-06-03] MEDS: HYDROCODONE/APAP (5/325) TAB PO PRN ×2 (10:32→21:21)
[2017-06-03 12:15] VITALS: BP 110/60; PULSE 80; RESP 18
[2017-06-03 16:30] VITALS: BP 94/59; PULSE 96; RESP 16
[2017-06-03 19:40] VITALS: BP 103/69; PULSE 86; RESP 19
[2017-06-04] MEDS: IBUPROFEN 800 MG TAB PO SCH ×3 (00:25→14:37)
[2017-06-04 00:41] VITALS: BP 104/64; RESP 17
[2017-06-04 04:44] VITALS: BP 101/62; PULSE 77; RESP 19
[2017-06-04] MEDS: HYDROCODONE/APAP (5/325) TAB PO PRN (05:49)
[2017-06-04] MEDS: METOCLOPRAMIDE 10 MG TAB PO SCH ×3 (05:50→11:24)
[2017-06-04 07:05] LABS: ABNORMAL IP MESSAGE 1; BASOPHILS % 0.2 % (0.0-2.0); EOSINOPHILS # 0.3 10^3/ul (0.0-0.5); EOSINOPHILS % 1.5 % (0.0-7.0); HEMATOCRIT 32.4 % (37.0-47.0); HEMOGLOBIN 10.4 g/dl (12.0-16.0); LYMPHOCYTES # 2.2 10^3/ul (0.8-2.9); LYMPHOCYTES % 12.3 % (15.0-51.0); MEAN CORPUSCULAR HEMOGLOBIN 28.8 pg (29.0-33.0); MEAN CORPUSCULAR HGB CONC 32.1 g/dl (32.0-37.0); MEAN CORPUSCULAR VOLUME 89.8 fl (82.0-101.0); MEAN PLATELET VOLUME 10.8 fl (7.4-10.4); MONOCYTE # 1.6 10^3/ul (0.3-0.9); MONOCYTES % 9.3 % (0.0-11.0); NEUTROPHIL # 13.1 10^3/ul (1.6-7.5); NEUTROPHILS % 73.7 % (39.0-77.0); PLATELET COUNT 229 10^3/UL (140-415); RED BLOOD COUNT 3.61 10^6/ul (4.20-5.40); WHITE BLOOD COUNT 17.7 10^3/ul (4.8-10.8)
[2017-06-04 07:14] LABS: POSITIVE DIFF @See below
[2017-06-04 07:30] VITALS: BP 115/61; PULSE 70; RESP 16
[2017-06-04] MEDS: ACCU-CHEK XX SCH ×3 (07:30→13:50)
[2017-06-04] MEDS: SENNA/DOCUSATE NA (8.6MG/50MG) TAB PO SCH (08:28)
[2017-06-04] MEDS ORDERED: DIPHTH/TET/ACEL PERTUSS (ADULT) 0.5 ML VIAL IM* ONE (09:00)
[2017-06-04] MEDS ORDERED: MEASLES,MUMPS,RUBELLA VACCINE INJ SC* ONE (09:00)
[2017-06-04] MEDS: LABETALOL 100 MG TAB PO SCH (09:00)
--- NOTE | 2017-06-04 11:46 | DS ---
Date/Time of Note Date/Time of Note DATE: 06/04/17 TIME: 11:46 Obstetrical Discharge Record Final Diagnosis Final Diagnosis: delivered Section Section: Primary Primary Indication non reassuring FHT Condition on Discharge Physical Assessment Voiding: Yes Bowel Movement: Yes Breast: Soft, non-tender Fundus: Firm Calf Tenderness: No Patient Condition: Stable DONI EVERETT MD Jun 04, 2017 11:46
[2017-06-04] MEDS ORDERED: INFLUENZA VIRUS VACCINE 0.5 ML SYG IM* ONE (12:00)
== END 2017-06-04 15:40 | disposition home or self-care (01) | DRG 765 ==
LOC: OBT 14:30 → L-D 15:39 → OBT 17:08 → L-D 17:55 → PP1 06-02 02:48
PROVIDERS: ADMIT Obstetrics & Gynecology; ATTEND Obstetrics & Gynecology
PROC: 10D00Z1 Extraction of Products of Conception, Low, Open Approach (ICD-10-PCS; principal; 2017-06-01 23:00)
DX: O60.14X0 Preterm labor third trimester with preterm delivery third trimester, not applicable or unspecified (principal); O40.3XX0 Polyhydramnios, third trimester, not applicable or unspecified; O24.429 Gestational diabetes mellitus in childbirth, unspecified control; O33.9 Maternal care for disproportion, unspecified; O76 Abnormality in fetal heart rate and rhythm complicating labor and delivery; Z3A.34 34 weeks gestation of pregnancy; Z37.0 Single live birth
CPT/HCPCS: 36415; 76815; 76818; 80053; 81001; 82962; 83036; 83735; 84560; 85025; 85610; 85730; 86592; 86850; 86900; 86901; 87086; 87340; 87591; 90686; 90715; 94760; 96372; 99464; G0463; J0290; J0690; J0702; J1815; J1885; J2274; J2370; J2405; J2590; J3010; J3105; J3475; J7120

== ENCOUNTER 2018-03-06 17:42 | Emergency (ER) | END 2018-03-06 21:27 | disposition home or self-care (01) ==

== ENCOUNTER 2019-01-12 17:18 | Emergency (ER) | payer OTHER ==
[~2019-01-12] VITALS: Ht 149.9 cm; Wt 65.2 kg
[~2019-01-12 17:18] MED LIST changes: +CEPH-443 PO; +IBUP-1542 PO
[2019-01-12 17:23] VITALS: BP 106/74; PULSE 89; RESP 18; Ht 149.9 cm; Wt 65.2 kg
[2019-01-12] MEDS ORDERED: FLUC150T PO (19:46)
--- NOTE | 2019-01-12 19:50 | ERD ---
ER Documentation Chief Complaint Chief Complaint ITCHING/SWELLING ON GENETLA AREA X 3 DAYS HPI 28-year-old female presents with vaginal irritation itching is associated with white discharge. She taken take antibiotics last week. She denies any fevers, vomiting or abdominal pain. She has pain in the outer vaginal area while urinating but no specific dysuria. Denies . ROS All systems reviewed and are negative except as per history of present illness. Medications Home Meds Active Scripts Fluconazole* (Diflucan*) 150 Mg Tablet, 150 MG PO ONCE, #2 TAB Repeat after 1 week for persistent symptoms. Prov:SAIDA PRINCE MD 01/12/19 Ibuprofen* (Motrin*) 600 Mg Tab, 600 MG PO Q6, #30 TAB Prov:APOLONIA MIRANDA PA-C 03/06/18 Cephalexin* (Keflex*) 500 Mg Capsule, 500 MG PO QID for 5 Days, CAP Prov:APOLONIA MIRANDA PA-C 03/06/18 Reported Medications Ferrous Gluconate (Iron) 256 Mg Tablet, 256 MG PO, TAB 05/18/17 Vit W-Ca,Fe,FA(<1 mg) ( Vitamins) 1 Each Tablet, 1 EACH PO, TAB 05/15/17 Allergies Allergies: Coded Allergies: No Known Allergy (Unverified , 05/15/17) PMhx/Soc History of Surgery: Yes ( ) Anesthesia Reaction: No Hx Neurological Disorder: No Hx Respiratory Disorders: No Hx Cardiac Disorders: No Hx Psychiatric Problems: No Hx Miscellaneous Medical Probl: Yes (Gest DM, PCOS) Hx Alcohol Use: No Hx Substance Use: No Hx Tobacco Use: No Smoking Status: Never smoker FmHx Family History: No diabetes, No coronary disease, No other Physical Exam Vitals Vital Signs Date Temp Pulse Resp B/P (MAP) Pulse Ox O2 O2 Flow FiO2 Time Delivery Rate 01/12/19 98.3 89 18 106/74 99 17:23 (85) Physical Exam Const: No acute distress Head: Atraumatic Eyes: Normal Conjunctiva ENT: Normal External Ears, Nose and Mouth. Neck: Full range of motion. No meningismus. Resp: Clear to auscultation bilaterally Cardio: Regular rate and rhythm, no murmurs Abd: Soft, non tender, non distended. Normal bowel sounds. Pelvic exam with housekeeping aide shows whitish discharge and irritation of the importance. No external lesions, ulcers, CMT or masses. Skin: No petechiae or rashes Back: No midline or flank tenderness Ext: No cyanosis, or edema Neur: Awake and alert Psych: Normal Mood and Affect Results 24 hrs Laboratory Tests Test 01/12/19 19:21 01/12/19 19:22 Bedside Urine pH (LAB) 6.0 Bedside Urine Protein (LAB) Trace Bedside Urine Glucose (UA) Negative Bedside Urine Ketones (LAB) Negative Bedside Urine Blood Trace-intact Bedside Urine Nitrite (LAB) Negative Bedside Urine Leukocyte Esterase (L 1+ POC Beta HCG, Qualitative NEGATIVE Procedures/MDM Urine shows 1+ leukocytes but hCG is negative. Suspect her to catch given no other signs of UTI. She likely has monilial vaginitis. Will treat with Diflucan, recommendations for primary care follow-up and return precautions. The patient was stable with no new complaints during the ER course. Clinically, there is no current evidence to suggest meningitis, sepsis, acute abdomen, pneumonia, stroke, acute coronary syndrome, pulmonary embolism, aortic dissection or any other emergent condition appearing to require further evalu ation or hospitalization. Patient counseled regarding my diagnostic impression and care plan. Prior to discharge all questions answered. Pt agrees with treatment plan and understands strict return precautions. Pt is instructed to follow up with primary care provider within 24-48 hours. Precautionary instructions provided including instructions to return to the ER if not improving or for any worsening or changing symptoms or concerns. Disclaimer: Inadvertent spelling and grammatical errors are likely due to EHR/dictation software use and do not reflect on the overall quality of patient care. Also, please note that the electronic time recorded on this note does not necessarily reflect the actual time of the patient encounter. Departure Diagnosis: Primary Impression: Monilial vaginitis Additional Impression: Disorder of female genital organ Condition: Stable Patient Instructions: Vaginitis, Ryann Additional Instructions: Likely yeast infection. Okay to take probiotics at home. Recheck for new or worsening symptoms with primary care doctor. SAIDA PRINCE MD Jan 12, 2019 19:50
== END 2019-01-12 19:57 | disposition home or self-care (01) ==
LOC: FTE 17:18
DX: B37.3 Candidiasis of vulva and vagina (principal); E11.9 Type 2 diabetes mellitus without complications
CPT/HCPCS: 81003; 81025; 99284